=== PATIENT | female | born 1975 | race Hispanic/Latino ===

== ENCOUNTER 2017-08-07 21:07 | Observation (INO) | payer MEDICAID ==
[2017-08-07 21:17] VITALS: BMI 40.3
--- NOTE | 2017-08-07 21:36 | ED PDOC ---
Arrival/HPI - General Chief Complaint: Chest Pain Time Seen by Provider: 08/07/17 21:18 Historian: Patient - History of Present Illness Narrative History of Present Illness (Text): 08/07/17 21:35 Maria Luz Aragon is a 42 year old female, whose past medical history includes atrial fibrillation, hypertension, anxiety, and pancreatitis, who presents to the Emergency department complaining of mid-sternal chest pain radiating to her left arm since this morning, worsening tonight. Patient describes chest pain as a shooting pain and notes it is worsened with deep inspiration. Patient also reports generalized malaise. Patient states she took her medication tonight without relief. Patient denies any fever, chills, shortness of breath, nausea, vomiting, diarrhea, urinary symptoms, back pain, neck pain, headache, dizziness , or any other complaints. PMD: Dr. Brigida Mcmillan Time/Duration: Other (today) Symptom Onset: Gradual Symptom Course: Unchanged Activities at Onset: Light Context: Home Past Medical History - Provider Review Nursing Documentation Reviewed: Yes - Infectious Disease Hx of Infectious Diseases: None - Tetanus Immunization Tetanus Immunization: Up to Date - Cardiac Hx Cardiac Disorders: Yes Hx Atrial Fibrillation: Yes Hx Cardiac Arrhythmia: Yes (afib) Hx Hypertension: Yes Hx Peripheral Edema: Yes (+1 b/l) - Pulmonary Hx Respiratory Disorders: Yes Hx Pneumonia: Yes - Neurological Hx Neurological Disorder: No - HEENT Hx HEENT Disorder: No - Renal Hx Renal Disorder: Yes (cyst right kidney) - Endocrine/Metabolic Hx Endocrine Disorders: No - Hematological/Oncological Hx Blood Disorders: No - Integumentary Hx Dermatological Disorder: No - Musculoskeletal/Rheumatological Hx Musculoskeletal Disorders: No Hx Falls: No - Gastrointestinal Hx Gastrointestinal Disorders: Yes (IBS, hemorrhoids) Hx Gastroesophageal Reflux: Yes Hx Pancreatitis: Yes - Genitourinary/Gynecological Hx Genitourinary Disorders: Yes (KIDNEY CYST RIGHT,C SECTION X2) Other/Comment: ovarian cysts hx abn pap cone bx,HPV, 2 miscarriages - Psychiatric Hx Psychophysiologic Disorder: Yes Hx Anxiety: Yes Hx Depression: No Hx Emotional Abuse: No Hx Physical Abuse: No Hx Substance Use: No - Surgical History Hx Cardiac Catheterization: Yes Hx Section: Yes Hx Hysterectomy: Yes (partial) Hx Orthopedic Surgery: Yes (Left ft tendon ruptured) - Anesthesia Hx Anesthesia: Yes Hx Anesthesia Reactions: No Hx Malignant Hyperthermia: No - Suicidal Assessment Feels Threatened In Home Enviroment: No Family/Social History - Physician Review Nursing Documentation Reviewed: Yes Family/Social History: Unknown Family HX Smoking Status: Never Smoked Hx Alcohol Use: Yes Hx Substance Use: No Hx Substance Use Treatment: No Allergies/Home Meds Allergies/Adverse Reactions: Allergies milk Allergy (Verified 06/16/16 10:57) PAIN Penicillins Allergy (Verified 06/16/16 10:57) URTICARIA Home Medications: Home Meds Medication Instructions Recorded Confirmed Aspirin [Aspirin Chewable] 162 mg PO DAILY 06/16/16 08/07/17 Valsartan [Diovan] 0 mg PO DAILY 08/07/17 08/07/17 Review of Systems - Physician Review All systems were reviewed & negative as marked: Yes - Review of Systems Constitutional: Other (+generalized malaise). absent: Fevers Eyes: Normal ENT: Normal Respiratory: Normal. absent: SOB, Cough Cardiovascular: Chest Pain Gastrointestinal: Normal. absent: Abdominal Pain, Diarrhea, Nausea, Vomiting Genitourinary Female: Normal. absent: Dysuria, Frequency, Hematuria, Urine Output Changes Musculoskeletal: Normal. absent: Back Pain, Neck Pain Skin: Normal. absent: Rash Neurological: Normal. absent: Headache, Dizziness Endocrine: Normal Hemo/Lymphatic: Normal Psychiatric: Normal Physical Exam Vital Signs Reviewed: Yes Vital Signs Pulse Resp BP Pulse Ox 08/08/17 02:50 57 L 19 98 08/08/17 02:07 58 L 21 139/73 100 08/07/17 22:21 79 18 117/66 100 08/07/17 21:33 98 H 18 136/90 100 08/07/17 21:16 98 H 20 150/112 H 100 Temperature: Afebrile Blood Pressure: Hypertensive Pulse: Regular Respiratory Rate: Normal Appearance: Positive for: Well-Appearing, Non-Toxic, Comfortable Pain Distress: None Mental Status: Positive for: Alert and Oriented X 3 - Systems Exam Head: Present: Atraumatic, Normocephalic Pupils: Present: PERRL Extroacular Muscles: Present: EOMI Conjunctiva: Present: Normal Mouth: Present: Moist Mucous Membranes Neck: Present: Normal Range of Motion Respiratory/Chest: Present: Clear to Auscultation, Good Air Exchange. No: Respiratory Distress, Accessory Muscle Use Cardiovascular: Present: Regular Rate and Rhythm, Normal S1, S2. No: Murmurs Abdomen: Present: Normal Bowel Sounds. No: Tenderness, Distention, Peritoneal Signs Back: Present: Normal Inspection Upper Extremity: Present: Normal Inspection. No: Cyanosis, Edema Lower Extremity: Present: Normal Inspection. No: Edema Neurological: Present: GCS=15, CN II-XII Intact, Speech Normal Skin: Present: Warm, Dry, Normal Color. No: Rashes Psychiatric: Present: Alert, Oriented x 3, Normal Insight, Normal Concentration Medical Decision Making ED Course and Treatment: 08/07/17 21:35 Impression: 42 year old female complaining of chest pain radiating to left arm and generalized malaise since earlier today. Differential Diagnosis included but are not limited to: chest pain vs. a fib vs. ACS vs. PE Plan: -- EKG -- CTA Chest -- Labs, cardiac enzymes, D-dimer -- Urinalysis -- Reassess and disposition Prior Visits: Notes and results from previous visits were reviewed. On 06/16/2016, pt was seen in the Emergency department for left flank pain. Pt was discharged home. Progress Notes: Reviewed EKG, sinus tachycardia at [address]-segment elevations or depressions, no T-wave inversions. 08/08/17 00:56 Reviewed radiology, CTA Chest shows: Artifacts: Motion artifact degrades image quality. Heart, aorta and Pulmonary arteries: Heart size is normal. There is no pericardial effusion.There is no aneurysm or dissection. There is perfusion of the 3 arch vessels.There are no pulmonary emboli. Lungs and pleural spaces: Trachea and main bronchi are patent.There is no pneumothorax. There is no lobar or segmental consolidation. There is minimal dependent atelectasis. There are no effusions. Mediastinum: Esophagus is unremarkable. There are no pathologically enlarged mediastinal or hilar nodes. Thyroid: Thyroid is unremarkable Bones/joints: There are no acute osseous abnormalities. Soft tissues: unremarkable Upper abdomen: There are no acute abnormalities in the visualized portion of the abdomen. There is a right renal cyst. IMPRESSION: No aneurysm, dissection or pulmonary embolus, no focal pneumonia. 08/08/17 01:25 Case discussed with neuropsychology medical consultant, who is aware and agrees with plan. Case discussed with Dr. Daniels, who is aware and agrees with plan. Accepts pt in to hospitalist service. Pt will go to Telemetry observation for chest pain. Pt is no acute distress. Discussed results and hospital observation plan with pt , who is aware and verbalizes understanding. - Lab Interpretations Lab Results: 08/07/17 21:20 08/07/17 21:20 Lab Results 08/07/17 23:30: Urine Color Yellow, Urine Appearance Clear, Urine pH 6.0, Ur Specific [place] 1.020, Urine Protein Negative, Urine Glucose (UA) Negative, Urine Ketones Negative, Urine Blood Trace-intact H, Urine Nitrate Negative, Urine Bilirubin Negative, Urine Urobilinogen 0.2, Ur Leukocyte Esterase Negative , Urine RBC 0 - 2, Urine WBC 0 - 2, Ur Epithelial Cells 0 - 2 08/07/17 21:20: Sodium 141, Potassium 4.0, Chloride 105, Carbon Dioxide 26, Anion Gap 14, BUN 21, Creatinine 0.9, Est GFR ( Amer) > 60, Est GFR (Non- Af Amer) > 60, Random Glucose 91, Calcium 9.4, Magnesium 1.9, Total Bilirubin 0.7, AST 20, ALT 25, Alkaline Phosphatase 51, Lactate Dehydrogenase 528, Total Creatine Kinase 125, Troponin I < 0.01, Total Protein 7.1, Albumin 4.2, Globulin 2.9, Albumin/Globulin Ratio 1.4 08/07/17 21:20: D-Dimer, Quantitative 432 H 08/07/17 21:20: WBC 10.0 D, RBC 4.67, Hgb 14.1, Hct 40.9, MCV 87.6, MCH 30.2, MCHC 34.5, RDW 13.0, Plt Count 237, MPV 9.5, Gran % 64.7, Lymph % (Auto) 28.5, [place] % (Auto) 4.8, Eos % (Auto) 1.8, Baso % (Auto) 0.2, Gran # 6.46, Lymph # 2.9 , [place] # 0.5, Eos # 0.2, Baso # 0.02 I have reviewed the lab results: Yes - RAD Interpretation Radiology Orders: 08/07/17 22:52 ANGIO CHEST PE PROTOCOL [CT] Stat Preparation Department Supervisor: Radiologist - EKG Interpretation Interpreted by ED Physician: Yes Type: 12 lead EKG - Medication Orders Current Medication Orders: Discontinued Medications Acetaminophen (Tylenol 325mg Tab) 975 mg PO STAT STA Stop: 08/08/17 02:29 Last Admin: 08/08/17 02:47 Dose: 975 mg MAR Pain/Vitals Document 08/08/17 02:47 [email or web address] (Rec: 08/08/17 02:47 [email or web address] [id number]) Pain Reassessment Is This A Pain ReAssessment? No Sleep Is patient sleeping during reassessment? No Presence of Pain Presence of Pain Yes Pain Scale Used Pain Scale Used Numeric Location Pain Location Body Site Chest Description Constant Intensity 7 Scale Used Numeric Pain Behavior Facial Grimacing Aggravating Factors Changing Position Alleviating Factors Medication Re-Assess: [facility] Pain/Vitals Document 08/08/17 03:47 MS (Rec: 08/08/17 04:13 MS [id number]) Pain Reassessment Is This A Pain ReAssessment? Yes Sleep Is patient sleeping during reassessment? No Presence of Pain Presence of Pain No Aspirin (Aspirin Chewable) 162 mg PO DAILY [facility] Last Admin: 08/08/17 10:33 Dose: 162 mg Levothyroxine Sodium (Synthroid) 25 mcg PO 0600 [facility] Metoprolol Tartrate (Lopressor) 25 mg PO BID [facility] Last Admin: 08/08/17 10:31 Dose: 25 mg [facility] Pulse and Blood Pressure Document 08/08/17 10:31 MM (Rec: 08/08/17 10:32 MM [id number]) Pulse Pulse Rate (60-90) 68 Blood Pressure Blood Pressure (100/60-150/90) 111/52 Pantoprazole Sodium (Protonix Inj) 40 mg IVP DAILY [facility] Last Admin: 08/08/17 10:31 Dose: 40 mg IVP Administration Document 08/08/17 10:31 MM (Rec: 08/08/17 10:31 MM [id number]) Charges for Administration # of IVP Administrations 1 - Scribe Statement The provider has reviewed the documentation as recorded by the Marissa Grady Provider Scribe Attestation: All medical record entries made by the Scribe were at my direction and personally dictated by me. I have reviewed the chart and agree that the record accurately reflects my personal performance of the history, physical exam, medical decision making, and the department course for this patient. I have also personally directed, reviewed, and agree with the discharge instructions and disposition. Disposition/Present on Arrival - Present on Arrival Any Indicators Present on Arrival: No History of DVT/PE: No History of Uncontrolled Diabetes: No Urinary Catheter: No History of Decub. Ulcer: No History Surgical Site Infection Following: None - Disposition Have Diagnosis and Disposition been Completed?: Yes Diagnosis: Chest pain, Chest pain at rest Disposition: HOSPITALIZED Disposition Time: 01:20 Condition: GOOD
[2017-08-07 22:31] LABS: ALB/GLOB RATIO 1.4 (1.1-1.8); ALKALINE PHOSPHATASE 51 U/L (38-126); ALT/SGPT 25 U/L (7-56); AST/SGOT 20 U/L (14-36); BILIRUBIN,TOTAL 0.7 mg/dL (0.2-1.3); BLOOD UREA NITROGEN 21 mg/dL (7-21); CALCIUM 9.4 mg/dL (8.4-10.5); CARBON DIOXIDE 26 mmol/L (21-33); CHLORIDE 105 mmol/L (98-107); GFR AFRICAN-AMERICAN > 60; GLUCOSE,RANDOM 91 mg/dL (70-110); MAGNESIUM 1.9 mg/dL (1.7-2.2); SODIUM 141 mmol/L (132-148); TOTAL PROTEIN 7.1 g/dL (5.8-8.3)
[2017-08-07 22:41] LABS: BASO # 0.02 K/mm3 (0.0-2.0); BASO % 0.2 % (0.0-3.0); EOS # 0.2 (0.0-0.7); EOS % 1.8 % (1.5-5.0); GRAN # 6.46 (1.4-6.5); GRAN % 64.7 % (50.0-68.0); HEMATOCRIT 40.9 % (36.0-48.0); LYMPH # 2.9 (1.2-3.4); LYMPH % 28.5 % (22.0-35.0); MEAN CELL VOLUME 87.6 fl (80.0-105.0); MEAN CORPUSCULAR HEMOGLOBIN 30.2 pg (25.0-35.0); MEAN CORPUSCULAR HGB CONC 34.5 g/dl (31.0-37.0); MEAN PLATELET VOLUME 9.5 fl (7.0-11.0); MONO # 0.5 (0.1-0.6); MONO % 4.8 % (1.0-6.0); TROPONIN I < 0.01 ng/mL
[2017-08-07] MEDS ORDERED: Iohexol 350 MG/100 ML VIAL ONE (22:54)
[2017-08-07 23:58] LABS: URINE BILIRUBIN NEGATIVE (NEGATIVE); URINE BLOOD TRACE-INTACT (NEGATIVE); URINE GLUCOSE (UA) NEGATIVE (NEGATIVE); URINE KETONE NEGATIVE (NEGATIVE); URINE LEUKOCYTE ESTERASE NEGATIVE Leu/uL (NEGATIVE); URINE PROTEIN NEGATIVE mg/dL (<30 mg/dL); URINE UROBILINOGEN 0.2 E.U./dL (<1 E.U./dL)
[2017-08-07 23:59] LABS: URINE APPEARANCE CLEAR (CLEAR); URINE COLOR YELLOW (YELLOW)
[2017-08-08 00:11] LABS: URINE EPITHELIAL CELLS 0 - 2 /hpf (0-5); URINE RBC 0 - 2 /hpf (0-2); URINE WBC 0 - 2 /hpf (0-6)
--- NOTE | 2017-08-08 00:47 | CT ---
EXAM: CT Angiography Chest With Intravenous Contrast EXAM DATE/TIME: 08/07/2017 10:52 PM CLINICAL HISTORY: 42 years old, female; Pain; Chest pain; Additional info: Cp TECHNIQUE: Axial computed tomographic angiography images of the chest with intravenous contrast using pulmonary embolism protocol. All CT scans at this facility use one or more dose reduction techniques, viz.: automated exposure control; ma/kV adjustment per patient size (including targeted exams where dose is matched to indication; i.e. head); or iterative reconstruction technique. MIP reconstructed images were created and reviewed. Coronal and sagittal reformatted images were created and reviewed. CONTRAST: 96 mL of OMNI 350 administered intravenously. COMPARISON: CR - CHEST PORTABLE 2016-01-17 21:20 FINDINGS: Artifacts: Motion artifact degrades image quality. Heart, aorta and Pulmonary arteries: Heart size is normal. There is no pericardial effusion.There is no aneurysm or dissection. There is perfusion of the 3 arch vessels.There are no pulmonary emboli. Lungs and pleural spaces: Trachea and main bronchi are patent.There is no pneumothorax. There is no lobar or segmental consolidation. There is minimal dependent atelectasis. There are no effusions. Mediastinum: Esophagus is unremarkable. There are no pathologically enlarged mediastinal or hilar nodes. Thyroid: Thyroid is unremarkable Bones/joints: There are no acute osseous abnormalities. Soft tissues: unremarkable Upper abdomen: There are no acute abnormalities in the visualized portion of the abdomen. There is a right renal cyst. IMPRESSION: No aneurysm, dissection or pulmonary embolus, no focal pneumonia
--- NOTE | 2017-08-08 02:55 | CP.PCM.HP ---
<Emigdio Spencer - Last Filed: 08/08/17 02:49> History of Present Illness - History of Present Illness History of Present Illness: This is a 42 year old female with a past medical history of hypertension, and obesity who comes in with chest pain for two years. The patient came in today because it began radiating to her left arm. The patient says it begins in the sternum area and radiates the left arm. The patient reports taking a hot shower to help improve the symptoms with no success. The patient also is reporting shortness of breath in conjunction with the initial symptoms. The patient denies any abdominal pain, lightheadedness ,dizziness, changes in vision , nausea, vomiting, numbness or tingling in hands or feet, syncopal episodes or any other complaints. PMD: Dr. Mcmillan Past medical history:hypertension, obesity Medications: Valsartan, Metoprolol Allergies: Penicillins, milk Past surgical history: Foot repair, 2 Caesarean sections, Partial hysterectomy, Cardiac cath (2014) Past social history: Denies alcohol or smoking. [place] illicit drug use. Present on Admission - Present on Admission Any Indicators Present on Admission: No Review of Systems - Constitutional Constitutional: absent: Chills, Daytime Sleepiness, Headache, Night Sweats, Weakness - EENT Eyes: absent: Blurred Vision, Change in Vision, Discharge, Dry Eye, Irritation, Loss of Peripheral Vision Ears: absent: Ear Discharge, Disequilibrium, Dizziness Nose/Mouth/Throat: absent: Nasal Congestion, Nasal Trauma, Nose Pain, Bleeding Gums, Dysphagia, Mouth Pain, Facial Pain - Cardiovascular Cardiovascular: Chest Pain, Chest Pain at Rest. absent: Diaphoresis, Dyspnea, Dyspnea on Exertion, Irregular Heart Rhythm, Leg Edema, Palpitations, Syncope - Respiratory Respiratory: absent: Snoring, Stridor, Pain on Inspiration, Chest Congestion - Gastrointestinal Gastrointestinal: absent: Abdominal Pain, Belching, Diarrhea, Dysphagia, Melena , Nausea, Temesmus, Vomiting, Other - Genitourinary Genitourinary: absent: Change in Urinary Stream, Pyuria, Nocturia, Urinary Urgency, Bladder Distension - Musculoskeletal Musculoskeletal: absent: Arthralgias, Atrophy, Back Pain, Myalgias, Neck Pain, Stiffness, Tingling - Integumentary Integumentary: absent: Alopecia, Lesions, New Lesions, Photosensitivity, Swelling - Neurological Neurological: absent: Abnormal Hearing, Burning Sensations, Disequilibrium, Numbness, Headaches, Lack of Coordination, Tingling, Vertigo, Weakness - Psychiatric Psychiatric: absent: Anxiety, Confusion, Depression, Hopelessness, Irritability , Panic Attacks - Endocrine Endocrine: absent: Palpitations, Polydipsia, Polyphagia, Polyuria - Hematologic/Lymphatic Hematologic: absent: Easy Bleeding, Easy Bruising Past Patient History - Infectious Disease Hx of Infectious Diseases: None - Tetanus Immunizations Tetanus Immunization: Up to Date - Past Medical History & Family History Past Medical History?: Yes - Past Social History Smoking Status: Never Smoked - CARDIAC Hx Cardiac Disorders: Yes Hx Atrial Fibrillation: Yes Hx Cardia Arrhythmia: Yes (afib) Hx Hypertension: Yes Hx Peripheral Edema: Yes (+1 b/l) - PULMONARY Hx Respiratory Disorders: Yes Hx Pneumonia: Yes - NEUROLOGICAL Hx Neurological Disorder: No - HEENT Hx HEENT Problems: No - RENAL Hx Chronic Kidney Disease: Yes (cyst right kidney) - ENDOCRINE/METABOLIC Hx Endocrine Disorders: No - HEMATOLOGICAL/ONCOLOGICAL Hx Blood Disorders: No - INTEGUMENTARY Hx Dermatological Problems: No - MUSCULOSKELETAL/RHEUMATOLOGICAL Hx Musculoskeletal Disorders: No Hx Falls: No - GASTROINTESTINAL Hx Gastrointestinal Disorders: Yes (IBS, hemorrhoids) Hx Gastroesophageal Reflux: Yes Hx Pancreatitis: Yes - GENITOURINARY/GYNECOLOGICAL Hx Genitourinary Disorders: Yes (KIDNEY CYST RIGHT,C SECTION X2) Other/Comment: ovarian cysts hx abn pap cone bx,HPV, 2 miscarriages - PSYCHIATRIC Hx Psychophysiologic Disorder: Yes Hx Anxiety: Yes Hx Depression: No Hx Emotional Abuse: No Hx Physical Abuse: No Hx Substance Use: No - SURGICAL HISTORY Hx Cardiac Catheterization: Yes Hx Section: Yes Hx Hysterectomy: Yes (partial) Hx Orthopedic Surgery: Yes (Left ft tendon ruptured) - ANESTHESIA Hx Anesthesia: Yes Hx Anesthesia Reactions: No Hx Malignant Hyperthermia: No Meds Allergies/Adverse Reactions: Allergies Allergy/AdvReac Type Severity Reaction Status Date / Time milk Allergy PAIN Verified 06/16/16 10:57 Penicillins Allergy URTICARIA Verified 06/16/16 10:57 Physical Exam - Head Exam Head Exam: ATRAUMATIC, NORMAL INSPECTION, NORMOCEPHALIC - Eye Exam Eye Exam: EOMI, Normal appearance, PERRL Pupil Exam: NORMAL ACCOMODATION, PERRL. absent: Irregular, Unequal - ENT Exam ENT Exam: Mucous Membranes Moist, Normal Exam, Normal Oropharynx. absent: TM's Normal Bilaterally - Neck Exam Neck exam: Positive for: Normal Inspection. Negative for: Lymphadenopathy, Thyromegaly - Respiratory Exam Respiratory Exam: Clear to Auscultation Bilateral, NORMAL BREATHING PATTERN. absent: Chest Wall Tenderness, Prolonged Expiratory Phase, Respiratory Distress - Cardiovascular Exam Cardiovascular Exam: REGULAR RHYTHM, RRR, +S1, +S2. absent: Rubs - GI/Abdominal Exam GI & Abdominal Exam: Normal Bowel Sounds, Soft. absent: Hypoactive Bowel Sounds , Mass, Organomegaly, Tenderness - Extremities Exam Extremities exam: Positive for: full ROM, normal inspection. Negative for: joint swelling, pedal edema, tenderness - Back Exam Back exam: NORMAL INSPECTION. absent: CVA tenderness (L), CVA tenderness (R), paraspinal tenderness - Neurological Exam Neurological exam: Alert, CN II-XII Intact, Normal Gait, Oriented x3 - Psychiatric Exam Psychiatric exam: Normal Affect, Normal Mood - Skin Skin Exam: Dry, Intact Results - Vital Signs Recent Vital Signs: Last Vital Signs Temp Pulse 58 L 08/08/17 02:07 Resp 21 08/08/17 02:07 BP 139/73 08/08/17 02:07 Pulse Ox 100 08/08/17 02:07 - Labs Result Diagrams: 08/07/17 21:20 08/07/17 21:20 Assessment & Plan - Assessment and Plan (Free Text) Assessment: This is a 42 year old female with a past medical history of hypertension and obesity who is being admitted for chest pain. Plan: 1. Chest pain r/o acs, gerd, pleuritic pain -EKG in the e.d. was negative for acute ST-T changes -Troponins (-)x1. Trend troponins -Repeat EKG in the A.M. -Cardiology consulted. Will f/u with rec's. -TSH, Hemoglobin A1C, Lipid panel ordered. Will f/u with results. 2. Hypertension -Continue home meds. 3. Obesity -Counseled patient on eating and activity habits. GI ppx -Protonix DVT ppx -SCD's <Timoteo Daniels - Last Filed: 08/08/17 22:47> Results - Vital Signs Recent Vital Signs: Last Vital Signs Temp 98.1 F 08/08/17 12:00 Pulse 69 08/08/17 12:00 Resp 16 08/08/17 12:00 BP 138/81 08/08/17 12:00 Pulse Ox 97 08/08/17 06:00 - Labs Result Diagrams: 08/08/17 06:00 08/08/17 06:00 Labs: Laboratory Results - last 24 hr 08/08/17 08/08/17 08/08/17 02:50 06:00 06:00 WBC 6.8 D RBC 4.20 Hgb 12.4 Hct 36.7 MCV 87.4 MCH 29.5 MCHC 33.8 RDW 13.2 Plt Count 215 MPV 9.0 Gran % 49.8 L Lymph % (Auto) 40.1 H [place] % (Auto) 6.8 H Eos % (Auto) 2.9 Baso % (Auto) 0.4 Gran # 3.37 Lymph # 2.7 [place] # 0.5 Eos # 0.2 Baso # 0.03 Sodium 142 Potassium 4.1 Chloride 106 Carbon Dioxide 29 Anion Gap 11 BUN 19 Creatinine 0.8 Est GFR ( Amer) > 60 Est GFR (Non-Af Amer) > 60 Random Glucose 98 Hemoglobin A1c Calcium 8.7 Total Bilirubin 0.9 AST 20 ALT 32 Alkaline Phosphatase 46 Troponin I < 0.01 < 0.01 Total Protein 6.2 Albumin 3.5 Globulin 2.7 Albumin/Globulin Ratio 1.3 Triglycerides 83 Cholesterol 132 LDL Cholesterol Direct 82 HDL Cholesterol 41 Free T4 TSH 3rd Generation 08/08/17 08/08/17 08/08/17 06:00 06:00 09:15 WBC RBC Hgb Hct MCV MCH MCHC RDW Plt Count MPV Gran % Lymph % (Auto) [place] % (Auto) Eos % (Auto) Baso % (Auto) Gran # Lymph # [place] # Eos # Baso # Sodium Potassium Chloride Carbon Dioxide Anion Gap BUN Creatinine Est GFR ( Amer) Est GFR (Non-Af Amer) Random Glucose Hemoglobin A1c 5.3 Calcium Total Bilirubin AST ALT Alkaline Phosphatase Troponin I Total Protein Albumin Globulin Albumin/Globulin Ratio Triglycerides Cholesterol LDL Cholesterol Direct HDL Cholesterol Free T4 0.92 TSH 3rd Generation 5.25 H Attending/Attestation - Attestation I have personally seen and examined this patient.: Yes I have fully participated in the care of the patient.: Yes I have reviewed all pertinent clinical information: Yes Notes (Text): 08/08/17 22:45 Patient was seen when she was in the ER. Medical record was reviewed. Agree with history, physical examination, assessment and plan. My impressions are as follows: Chest pain. Atrial fibrillation. HTN. Obesity. TIA. UTI. Anxiety. GERD. Ovarian cyst. Allergy to penicillin. Allergy to milk. Hx of alcohol use. Elevated D-Dimer. Right renal cyst on CT. Pancretitis. Hemorrhoids. Tonsillitis. Cervitis. Hx C-Seciton. Hx left foot surgery. Partial hysrectomy. Right oophorectomy. Hx D & C. Hx of endoscopy. Family history [place]. Family history breast cancer. Family history stomach cancer. ] Family history ovarian cancer.
[2017-08-08 06:21] VITALS: O2SAT 97
[2017-08-08 06:36] LABS: BASO # 0.03 K/mm3 (0.0-2.0); BASO % 0.4 % (0.0-3.0); EOS # 0.2 (0.0-0.7); EOS % 2.9 % (1.5-5.0); GRAN # 3.37 (1.4-6.5); GRAN % 49.8 % (50.0-68.0); HEMATOCRIT 36.7 % (36.0-48.0); LYMPH # 2.7 (1.2-3.4); LYMPH % 40.1 % (22.0-35.0); MEAN CELL VOLUME 87.4 fl (80.0-105.0); MEAN CORPUSCULAR HEMOGLOBIN 29.5 pg (25.0-35.0); MEAN CORPUSCULAR HGB CONC 33.8 g/dl (31.0-37.0); MONO # 0.5 (0.1-0.6); MONO % 6.8 % (1.0-6.0); RED CELL DISTRIBUTION WIDTH 13.2 % (11.5-14.5); WHITE BLOOD COUNT 6.8 10^3/ul (4.5-11.0)
[2017-08-08 06:49] LABS: ALB/GLOB RATIO 1.3 (1.1-1.8); ALKALINE PHOSPHATASE 46 U/L (38-126); ALT/SGPT 32 U/L (7-56); AST/SGOT 20 U/L (14-36); BILIRUBIN,TOTAL 0.9 mg/dL (0.2-1.3); BLOOD UREA NITROGEN 19 mg/dL (7-21); CALCIUM 8.7 mg/dL (8.4-10.5); CARBON DIOXIDE 29 mmol/L (21-33); CHLORIDE 106 mmol/L (98-107); CHOLESTEROL 132 mg/dL (130-200); GFR AFRICAN-AMERICAN > 60; GLUCOSE,RANDOM 98 mg/dL (70-110); POTASSIUM 4.1 mmol/L (3.6-5.0); SODIUM 142 mmol/L (132-148); TOTAL PROTEIN 6.2 g/dL (5.8-8.3)
[2017-08-08 07:19] LABS: TROPONIN I < 0.01 ng/mL
[2017-08-08] MEDS ORDERED: Aminophylline 25 mg/ml Inj ONE (09:47)
--- NOTE | 2017-08-08 11:12 | CP.PCM.DIS ---
<Khurram Rangel - Last Filed: 08/08/17 14:55> Provider - Provider Date of Admission: 08/08/17 01:47 Attending physician: Lidya Peace MD Primary care physician: Tanner Mcmillan MD Consults: Cardiology Time Spent in preparation of Discharge (in minutes): 70 Hospital Course - Lab Results Lab Results: Most Recent Lab Values WBC 6.8 10^3/ul (4.5-11.0) D 08/08/17 06:00 RBC 4.20 10^6/uL (3.5-6.1) 08/08/17 06:00 Hgb 12.4 g/dL (12.0-16.0) 08/08/17 06:00 Hct 36.7 % (36.0-48.0) 08/08/17 06:00 MCV 87.4 fl (80.0-105.0) 08/08/17 06:00 MCH 29.5 pg (25.0-35.0) 08/08/17 06:00 MCHC 33.8 g/dl (31.0-37.0) 08/08/17 06:00 RDW 13.2 % (11.5-14.5) 08/08/17 06:00 Plt Count 215 10^3/uL (120.0-450.0) 08/08/17 06:00 MPV 9.0 fl (7.0-11.0) 08/08/17 06:00 Gran % 49.8 % (50.0-68.0) L 08/08/17 06:00 Lymph % (Auto) 40.1 % (22.0-35.0) H 08/08/17 06:00 [place] % (Auto) 6.8 % (1.0-6.0) H 08/08/17 06:00 Eos % (Auto) 2.9 % (1.5-5.0) 08/08/17 06:00 Baso % (Auto) 0.4 % (0.0-3.0) 08/08/17 06:00 Gran # 3.37 (1.4-6.5) 08/08/17 06:00 Lymph # 2.7 (1.2-3.4) 08/08/17 06:00 [place] # 0.5 (0.1-0.6) 08/08/17 06:00 Eos # 0.2 (0.0-0.7) 08/08/17 06:00 Baso # 0.03 K/mm3 (0.0-2.0) 08/08/17 06:00 D-Dimer, Quantitative 432 ng/mL (0-243) H 08/07/17 21:20 Sodium 142 mmol/L (132-148) 08/08/17 06:00 Potassium 4.1 mmol/L (3.6-5.0) 08/08/17 06:00 Chloride 106 mmol/L (98-107) 08/08/17 06:00 Carbon Dioxide 29 mmol/L (21-33) 08/08/17 06:00 Anion Gap 11 (10-20) 08/08/17 06:00 BUN 19 mg/dL (7-21) 08/08/17 06:00 Creatinine 0.8 mg/dL (0.7-1.2) 08/08/17 06:00 Est GFR ( Amer) > 60 08/08/17 06:00 Est GFR (Non-Af Amer) > 60 08/08/17 06:00 Random Glucose 98 mg/dL (70-110) 08/08/17 06:00 Calcium 8.7 mg/dL (8.4-10.5) 08/08/17 06:00 Magnesium 1.9 mg/dL (1.7-2.2) 08/07/17 21:20 Total Bilirubin 0.9 mg/dL (0.2-1.3) 08/08/17 06:00 AST 20 U/L (14-36) 08/08/17 06:00 ALT 32 U/L (7-56) 08/08/17 06:00 Alkaline Phosphatase 46 U/L (38-126) 08/08/17 06:00 Lactate Dehydrogenase 528 U/L (333-699) 08/07/17 21:20 Total Creatine Kinase 125 U/L (35-230) 08/07/17 21:20 Troponin I < 0.01 ng/mL 08/08/17 06:00 Total Protein 6.2 g/dL (5.8-8.3) 08/08/17 06:00 Albumin 3.5 g/dL (3.0-4.8) 08/08/17 06:00 Globulin 2.7 gm/dL 08/08/17 06:00 Albumin/Globulin Ratio 1.3 (1.1-1.8) 08/08/17 06:00 Triglycerides 83 mg/dL (35-160) 08/08/17 06:00 Cholesterol 132 mg/dL (130-200) 08/08/17 06:00 LDL Cholesterol Direct 82 mg/dL (0-129) 08/08/17 06:00 HDL Cholesterol 41 mg/dL (29-60) 08/08/17 06:00 Free T4 0.92 ng/dL (0.78-2.19) 08/08/17 09:15 TSH 3rd Generation 5.25 mIU/mL (0.46-4.68) H 08/08/17 06:00 Urine Color Yellow (YELLOW) 08/07/17 23:30 Urine Appearance Clear (CLEAR) 08/07/17 23:30 Urine pH 6.0 (4.7-8.0) 08/07/17 23:30 Ur Specific [place] 1.020 (1.005-1.035) 08/07/17 23:30 Urine Protein Negative mg/dL (<30 mg/dL) 08/07/17 23:30 Urine Glucose (UA) Negative mg/dL (NEGATIVE) 08/07/17 23:30 Urine Ketones Negative mg/dL (NEGATIVE) 08/07/17 23:30 Urine Blood Trace-intact (NEGATIVE) H 08/07/17 23:30 Urine Nitrate Negative (NEGATIVE) 08/07/17 23:30 Urine Bilirubin Negative (NEGATIVE) 08/07/17 23:30 Urine Urobilinogen 0.2 E.U./dL (<1 E.U./dL) 08/07/17 23:30 Ur Leukocyte Esterase Negative Arturo/uL (NEGATIVE) 08/07/17 23:30 Urine RBC 0 - 2 /hpf (0-2) 08/07/17 23:30 Urine WBC 0 - 2 /hpf (0-6) 08/07/17 23:30 Ur Epithelial Cells 0 - 2 /hpf (0-5) 08/07/17 23:30 - Hospital Course Hospital Course: This is a 42 year old female with a past medical history of hypertension and obesity who was admitted and evaluated for chest pain. EKG was done and was negative for acute ST-T changes. troponins were ordered and three sets were negative. Cardiology was consulted and patient refused a stress test. Patient will follow up as an outpatient. Patient was continued on home medicine and counselled on obesity. Discharge Exam - Head Exam Head Exam: ATRAUMATIC, NORMAL INSPECTION, NORMOCEPHALIC - Eye Exam Eye Exam: EOMI, Normal appearance, PERRL Pupil Exam: NORMAL ACCOMODATION - ENT Exam ENT Exam: Normal Exam - Respiratory Exam Respiratory Exam: Clear to PA & Lateral, NORMAL BREATHING PATTERN - Cardiovascular Exam Cardiovascular Exam: REGULAR RHYTHM, +S1, +S2 - GI/Abdominal Exam GI & Abdominal Exam: Normal Bowel Sounds, Unremarkable - Neurological Exam Neurological exam: Alert, Oriented x3 - Psychiatric Exam Psychiatric exam: Normal Affect - Skin Skin Exam: Normal Color, Warm Discharge Plan - Follow Up Plan Condition: GOOD Disposition: HOME/ ROUTINE Instructions: Chest Pain (DC), Chest Pain (GEN) Additional Instructions: Please schedule appointment with Dr. Griffin as an outpatient for cardiology. Referrals: Tanner Mcmillan [Primary Care Provider] - Yolie Griffin MD [Staff Provider] - <Lidya Peace - Last Filed: 08/08/17 17:55> Provider - Provider Date of Admission: 08/08/17 01:47 Attending physician: Lidya Peace MD Primary care physician: Tanner Mcmillan MD Hospital Course - Lab Results Lab Results: Most Recent Lab Values WBC 6.8 10^3/ul (4.5-11.0) D 08/08/17 06:00 RBC 4.20 10^6/uL (3.5-6.1) 08/08/17 06:00 Hgb 12.4 g/dL (12.0-16.0) 08/08/17 06:00 Hct 36.7 % (36.0-48.0) 08/08/17 06:00 MCV 87.4 fl (80.0-105.0) 08/08/17 06:00 MCH 29.5 pg (25.0-35.0) 08/08/17 06:00 MCHC 33.8 g/dl (31.0-37.0) 08/08/17 06:00 RDW 13.2 % (11.5-14.5) 08/08/17 06:00 Plt Count 215 10^3/uL (120.0-450.0) 08/08/17 06:00 MPV 9.0 fl (7.0-11.0) 08/08/17 06:00 Gran % 49.8 % (50.0-68.0) L 08/08/17 06:00 Lymph % (Auto) 40.1 % (22.0-35.0) H 08/08/17 06:00 [place] % (Auto) 6.8 % (1.0-6.0) H 08/08/17 06:00 Eos % (Auto) 2.9 % (1.5-5.0) 08/08/17 06:00 Baso % (Auto) 0.4 % (0.0-3.0) 08/08/17 06:00 Gran # 3.37 (1.4-6.5) 08/08/17 06:00 Lymph # 2.7 (1.2-3.4) 08/08/17 06:00 [place] # 0.5 (0.1-0.6) 08/08/17 06:00 Eos # 0.2 (0.0-0.7) 08/08/17 06:00 Baso # 0.03 K/mm3 (0.0-2.0) 08/08/17 06:00 D-Dimer, Quantitative 432 ng/mL (0-243) H 08/07/17 21:20 Sodium 142 mmol/L (132-148) 08/08/17 06:00 Potassium 4.1 mmol/L (3.6-5.0) 08/08/17 06:00 Chloride 106 mmol/L (98-107) 08/08/17 06:00 Carbon Dioxide 29 mmol/L (21-33) 08/08/17 06:00 Anion Gap 11 (10-20) 08/08/17 06:00 BUN 19 mg/dL (7-21) 08/08/17 06:00 Creatinine 0.8 mg/dL (0.7-1.2) 08/08/17 06:00 Est GFR ( Amer) > 60 08/08/17 06:00 Est GFR (Non-Af Amer) > 60 08/08/17 06:00 Random Glucose 98 mg/dL (70-110) 08/08/17 06:00 Hemoglobin A1c 5.3 % (4.2-6.5) 08/08/17 06:00 Calcium 8.7 mg/dL (8.4-10.5) 08/08/17 06:00 Magnesium 1.9 mg/dL (1.7-2.2) 08/07/17 21:20 Total Bilirubin 0.9 mg/dL (0.2-1.3) 08/08/17 06:00 AST 20 U/L (14-36) 08/08/17 06:00 ALT 32 U/L (7-56) 08/08/17 06:00 Alkaline Phosphatase 46 U/L (38-126) 08/08/17 06:00 Lactate Dehydrogenase 528 U/L (333-699) 08/07/17 21:20 Total Creatine Kinase 125 U/L (35-230) 08/07/17 21:20 Troponin I < 0.01 ng/mL 08/08/17 06:00 Total Protein 6.2 g/dL (5.8-8.3) 08/08/17 06:00 Albumin 3.5 g/dL (3.0-4.8) 08/08/17 06:00 Globulin 2.7 gm/dL 08/08/17 06:00 Albumin/Globulin Ratio 1.3 (1.1-1.8) 08/08/17 06:00 Triglycerides 83 mg/dL (35-160) 08/08/17 06:00 Cholesterol 132 mg/dL (130-200) 08/08/17 06:00 LDL Cholesterol Direct 82 mg/dL (0-129) 08/08/17 06:00 HDL Cholesterol 41 mg/dL (29-60) 08/08/17 06:00 Free T4 0.92 ng/dL (0.78-2.19) 08/08/17 09:15 TSH 3rd Generation 5.25 mIU/mL (0.46-4.68) H 08/08/17 06:00 Urine Color Yellow (YELLOW) 08/07/17 23:30 Urine Appearance Clear (CLEAR) 08/07/17 23:30 Urine pH 6.0 (4.7-8.0) 08/07/17 23:30 Ur Specific [place] 1.020 (1.005-1.035) 08/07/17 23:30 Urine Protein Negative mg/dL (<30 mg/dL) 08/07/17 23:30 Urine Glucose (UA) Negative mg/dL (NEGATIVE) 08/07/17 23:30 Urine Ketones Negative mg/dL (NEGATIVE) 08/07/17 23:30 Urine Blood Trace-intact (NEGATIVE) H 08/07/17 23:30 Urine Nitrate Negative (NEGATIVE) 08/07/17: Urine Bilirubin Negative (NEGATIVE) 08/07/17 23:30 Urine Urobilinogen 0.2 E.U./dL (<1 E.U./dL) 08/07/17 23:30 Ur Leukocyte Esterase Negative Arturo/uL (NEGATIVE) 08/07/17 23: Urine RBC 0 - 2 /hpf (0-2) 08/07/17 23:30 Urine WBC 0 - 2 /hpf (0-6) 08/07/17 23:30 Ur Epithelial Cells 0 - 2 /hpf (0-5) 08/07/17 23:30 Attending/Attestation - Attestation I have personally seen and examined this patient.: Yes I have fully participated in the care of the patient.: Yes I have reviewed all pertinent clinical information, including history, physical exam and plan: Yes Notes (Text): 08/08/17 17:54 Attending note; Patient seen and examined with resident. Patient is a 42-year-old female admitted with chest pain. Cardiac enzymes 3 negative. EKG no acute ST-T changes. Stress test was planned. Patient refused stress test today. patient had cardiac About 3 years ago which was normal. Patient will be discharged home. We will get stress test as outpatient with Dr. Griffin. Patient will follow up with PMD . Diagnosis; Chest pain Obesity Hypertension
[2017-08-08 12:09] VITALS: BP 138/81; PULSE 69; RESP 16; TEMP 98.1
--- NOTE | 2017-08-08 16:43 | CARD ---
APPROVED REPORT EKG Measurement Heart [id number] <Conclusion> Sinus bradycardia Otherwise normal ECG
--- NOTE | 2017-08-08 16:47 | CARD ---
APPROVED REPORT EKG Measurement Heart [id number] [place] [id number] <Conclusion> Sinus tachycardia Otherwise normal ECG
--- NOTE | 2017-08-08 20:33 | CON ---
DATE: 08/08/2017 ADDENDUM The initial consult was dictated this morning. REASON FOR ADDENDUM: The patient is scheduled for stress test and echo. The patient had been called multiple times as per nurse, but the patient refused to come and wanted to sleep, so we will reschedule a stress test as an outpatient, so far troponin remains negative, okay to be discharged and schedule workup as an outpatient. So far, troponin x3 is negative. We will discontinue telemetry and schedule stress test as an outpatient. Yolie Griffin MD
--- NOTE | 2017-08-08 22:57 | CON ---
CARDIOLOGY CONSULTATION DATE: 08/08/2017 REASON FOR CONSULTATION: Followup chest pain, palpitation, obesity. BRIEF CLINICAL HISTORY: This is a 42-year-old female with a past medical history significant for hypertension, obesity, palpitation, status post cardiac catheterization in 2012 or 2013, nonobstructive coronary artery disease essentially normal, came in with complaining of a squeezing pain in the chest, feels something is not right in the heart, so she came to the emergency room. Denies any dyspnea on exertion or chest pian on exertion. Pain was having off and on for a couple of days, but last two days more, so the patient came to the emergency room. PAST MEDICAL HISTORY: Significant for hypertension, TIA, obesity, being followed by Dr. Mcmillan in [place]. CURRENT MEDICATIONS: The patient is on valsartan, metoprolol and aspirin. PAST SURGICAL HISTORY: Significant for two sections, history of hysterectomy, history of foot repair, history of cardiac catheterization in 2013. SOCIAL HISTORY: She denies history of alcohol abuse, denies any history of substance abuse. Previous electronic record revealed that the patient had a cardiac catheterization on 07/15/[address] Walker, there is unremarkable coronaries with a normal left ventricular function, ejection fraction 55%. The patient's echocardiography on 07/03/2015 that showed a normal LV function, normal wall motion, no tricuspid regurgitation, no pulmonary hypertension, trace mitral regurgitation dated 07/03/2015. REVIEW OF SYSTEMS: As per HPI. PHYSICAL EXAMINATION: As follows; VITAL SIGNS: Temperature afebrile, heart rate 68, blood pressure 111/55. HEENT: PERRLA. Extraocular muscles are intact. NECK: Supple. No carotid bruits or thyromegaly. CHEST: Clear to auscultation. HEART: S1 and S2 regular. ABDOMEN: Soft. EXTREMITIES: Clubbing and cyanosis negative. LABORATORY DATA: Blood workup as follows; WBC of 6.8, hemoglobin of 12.8, hematocrit of 36.7, platelet count of 215. Chemistry shows sodium 140, potassium of 4, chloride 106, carbon dioxide 20, anion gap of 11, BUN 19, creatinine of 0.8. Troponin remains negative. TSH 5.25. IMPRESSION: Obesity, body mass index 40 kg/m2; hypertension; hyperlipidemia; history of cardiac catheterization on 07/15/2015, essentially normal coronaries, preserved left ventricular function by echocardiogram; recurrent chest pain; questionable history of transient ischemic attack and cerebrovascular accident; questionable history of palpitation; paroxysmal atrial fibrillation. RECOMMENDATIONS: Continue metoprolol. Stress test and echo to assess LV function. Resume back low dose of Levoxyl for elevated TSH. Follow lipid profile. We will follow with you. Thank you Dr. Peace for providing us the opportunity in taking care of Ms. Braga. We will follow with you. Yolie Griffni MD
[2017-08-09] MEDS ORDERED: Levothyroxine 25 MCG TAB PO SCH (06:00)
== END 2017-08-08 13:57 | disposition home or self-care (01) ==
LOC: ED 21:07 → ERH 08-08 01:47 → 2RNO 08-08 03:05
PROVIDERS: ADMIT Hospitalist; ATTEND Internal Medicine
DX: R07.9 Chest pain, unspecified (principal); E66.9 Obesity, unspecified; I10 Essential (primary) hypertension; E78.5 Hyperlipidemia, unspecified; I48.0 Paroxysmal atrial fibrillation; I25.10 Atherosclerotic heart disease of native coronary artery without angina pectoris; K21.9 Gastro-esophageal reflux disease without esophagitis; K58.9 Irritable bowel syndrome, unspecified; Z86.73 Personal history of transient ischemic attack (TIA), and cerebral infarction without residual deficits; Z87.01 Personal history of pneumonia (recurrent); N83.209 Unspecified ovarian cyst, unspecified side; Z90.710 Acquired absence of both cervix and uterus; N28.1 Cyst of kidney, acquired; F41.9 Anxiety disorder, unspecified; K64.9 Unspecified hemorrhoids; Z87.19 Personal history of other diseases of the digestive system; Z88.0 Allergy status to penicillin; Z91.011 Allergy to milk products; R40.2412 Glasgow coma scale score 13-15, at arrival to emergency department; R00.0 Tachycardia, unspecified; N39.0 Urinary tract infection, site not specified; J03.90 Acute tonsillitis, unspecified; Z82.49 Family history of ischemic heart disease and other diseases of the circulatory system; Z80.0 Family history of malignant neoplasm of digestive organs; Z80.41 Family history of malignant neoplasm of ovary; Z68.39 Body mass index [BMI] 39.0-39.9, adult
CPT/HCPCS: 71275; 80053; 80061; 81001; 82550; 83036; 83615; 83735; 84439; 84443; 84484; 85025; 85378; 93005; 99285; C9113; G0378; Q9967

== ENCOUNTER 2017-08-30 02:14 | Emergency (ER) | payer MEDICAID ==
[2017-08-30 02:15] VITALS: BMI 40.3
[2017-08-30 02:30] VITALS: TEMP 97.6
[2017-08-30 02:33] VITALS: BP 138/87; PULSE 75; RESP 18; O2SAT 97
[2017-08-30] MEDS ORDERED: Sodium Chloride 0.9% 1,000 ML IV STA (02:46)
[2017-08-30] MEDS ORDERED: Morphine 2 mg/ml ISec IVP STA (02:47)
--- NOTE | 2017-08-30 02:51 | ED PDOC ---
Arrival/HPI - General Chief Complaint: Female Genitourinary Time Seen by Provider: 08/30/17 02:36 Historian: Patient - History of Present Illness Narrative History of Present Illness (Text): 08/30/17 02:50 A 42 year old female, whose past medical history includes pancreatitis, anxiety , hypertension and Atrial fibrillation, presents to the emergency department complaining of left sided flank pain and dysuria. Patient denies any headache, dizziness, fever, chills, nausea or any other complaints at this time. PMD: Dr. Tanner Mcmillan Symptom Onset: Sudden Symptom Course: Unchanged Activities at Onset: Rest Context: Home Past Medical History - Provider Review Nursing Documentation Reviewed: Yes - Infectious Disease Hx of Infectious Diseases: None - Tetanus Immunization Tetanus Immunization: Up to Date - Cardiac Hx Cardiac Disorders: Yes Hx Atrial Fibrillation: Yes Hx Cardiac Arrhythmia: Yes (afib) Hx Hypertension: Yes Hx Peripheral Edema: Yes (+1 b/l) - Pulmonary Hx Respiratory Disorders: Yes Hx Pneumonia: Yes - Neurological Hx Neurological Disorder: No - HEENT Hx HEENT Disorder: No - Renal Hx Renal Disorder: Yes (cyst right kidney) Other/Comment: uti - Endocrine/Metabolic Hx Endocrine Disorders: No - Hematological/Oncological Hx Blood Disorders: No - Integumentary Hx Dermatological Disorder: No - Musculoskeletal/Rheumatological Hx Musculoskeletal Disorders: No Hx Falls: No - Gastrointestinal Hx Gastrointestinal Disorders: Yes (IBS, hemorrhoids) Hx Gastroesophageal Reflux: Yes Hx Pancreatitis: Yes - Genitourinary/Gynecological Hx Genitourinary Disorders: Yes (KIDNEY CYST RIGHT,C SECTION X2) Other/Comment: ovarian cysts hx abn pap cone bx,HPV, 2 miscarriages - Psychiatric Hx Psychophysiologic Disorder: No Hx Depression: No Hx Emotional Abuse: No Hx Physical Abuse: No Hx Substance Use: No - Surgical History Hx Cardiac Catheterization: Yes Hx Section: Yes (x2) Hx Hysterectomy: Yes (partial) Hx Orthopedic Surgery: Yes (Left ft tendon ruptured) - Anesthesia Hx Anesthesia: Yes Hx Anesthesia Reactions: No Hx Malignant Hyperthermia: No - Suicidal Assessment Feels Threatened In Home Enviroment: No Family/Social History - Physician Review Nursing Documentation Reviewed: Yes Family/Social History: No Known Family HX Smoking Status: Never Smoked Hx Alcohol Use: Yes Hx Substance Use: No Hx Substance Use Treatment: No Allergies/Home Meds Allergies/Adverse Reactions: Allergies milk Allergy (Verified 08/30/17 02:24) PAIN Penicillins Allergy (Verified 08/30/17 02:24) URTICARIA Home Medications: Home Meds Medication Instructions Recorded Confirmed Valsartan [Diovan] 80 mg PO DAILY 08/07/17 08/30/17 Review of Systems - Physician Review All systems were reviewed & negative as marked: Yes - Review of Systems Constitutional: absent: Fevers, Other (chills) Gastrointestinal: absent: Nausea Genitourinary Female: Dysuria Musculoskeletal: Other (left sided flank pain) Neurological: absent: Headache, Dizziness Physical Exam Vital Signs Reviewed: Yes Vital Signs Temp Pulse Resp BP Pulse Ox 08/30/17 02:30 75 18 138/87 97 08/30/17 02:25 97.6 F Appearance: Positive for: Well-Appearing, Non-Toxic, Comfortable Pain Distress: None Mental Status: Positive for: Alert and Oriented X 3 - Systems Exam Head: Present: Atraumatic, Normocephalic Pupils: Present: PERRL Extroacular Muscles: Present: EOMI Conjunctiva: Present: Normal Mouth: Present: Moist Mucous Membranes Neck: Present: Normal Range of Motion Respiratory/Chest: Present: Clear to Auscultation, Good Air Exchange. No: Respiratory Distress, Accessory Muscle Use Cardiovascular: Present: Regular Rate and Rhythm, Normal S1, S2. No: Murmurs Abdomen: Present: Normal Bowel Sounds. No: Tenderness, Distention, Peritoneal Signs Back: Present: Normal Inspection Upper Extremity: Present: Normal Inspection. No: Cyanosis, Edema Lower Extremity: Present: Normal Inspection. No: Edema Neurological: Present: GCS=15, CN II-XII Intact, Speech Normal Skin: Present: Warm, Dry, Normal Color. No: Rashes Psychiatric: Present: Alert, Oriented x 3, Normal Insight, Normal Concentration Medical Decision Making ED Course and Treatment: 08/30/17 02:49 Impression: A 42 year old female with left sided flank pain and dysuria. Plan: -- CT abd/pelvis -- labs -- Urinalysis -- Morphine, IV fluids, Zofran -- Reassess and disposition Prior Visits: Notes and results from previous visits were reviewed. Patient was last seen in the emergency department on 08/07/17 for evaluation of midsternal chest pain radiating to left arm. Progress Notes: CT Abdomen and Pelvis Without Intravenous Contrast FINDINGS: Lower thorax: No acute findings. ABDOMEN: Liver: Unremarkable. Gallbladder and bile ducts: No calcified stones. No ductal dilation. Pancreas: Unremarkable. No ductal dilation. Spleen: No splenomegaly. Adrenals: No mass. Kidneys and ureters: Large RIGHT renal cyst. Small LEFT renal cyst. No renal calculi. No hydronephrosis. Stomach and bowel: Few scattered diverticula within colon. No associated inflammatory stranding. No definite mural thickening. Few minimally distended loops of small bowel, likely ileus. Appendix: Normal caliber. No inflammation. PELVIS: Bladder: Unremarkable. No stones. Reproductive: Unremarkable as visualized. ABDOMEN and PELVIS: Intraperitoneal space: No significant fluid collection. No free air. Bones/joints: No acute fracture. Soft tissues: Unremarkable. Vasculature: Unremarkable. No aneurysm. Lymph nodes: No pathologically enlarged lymph nodes. IMPRESSION: 1. No definite CT evidence of urolithiasis. 2. Incidental/non-acute findings are described above. Dictated and Authenticated by: Miko West MD 08/30/2017 4:04 AM Eastern Time ([place] & [place]) Re-evaluation Time: 06:30 Reassessment Condition: Re-examined, Improved - Lab Interpretations Lab Results: 08/30/17 02:31 08/30/17 02:31 Lab Results 08/30/17 02:31: Sodium 140, Potassium 3.8, Chloride 104, Carbon Dioxide 26, Anion Gap 13, BUN 17, Creatinine 0.8, Est GFR ( Amer) > 60, Est GFR (Non- Af Amer) > 60, Random Glucose 101, Calcium 9.6, Total Bilirubin 1.0, AST 26, ALT 33, Alkaline Phosphatase 59, Total Protein 8.1, Albumin 4.4, Globulin 3.7, Albumin/Globulin Ratio 1.2 08/30/17 02:31: Urine Color Yellow, Urine Appearance Sl cloudy, Urine pH 6.5, Ur Specific [place] <= 1.005, Urine Protein Negative, Urine Glucose (UA) Negative, Urine Ketones Negative, Urine Blood Small H, Urine Nitrate Negative, Urine Bilirubin Negative, Urine Urobilinogen 0.2, Ur Leukocyte Esterase Moderate H, Urine RBC 1 - 3, Urine WBC 5 - 10, Ur Epithelial Cells 0 - 2, Urine Bacteria Mod, Urine HCG, Qual Negative 08/30/17 02:31: WBC 10.7 D, RBC 4.59, Hgb 13.9, Hct 40.4, MCV 88.0, MCH 30.3, MCHC 34.4, RDW 13.0, Plt Count 238, MPV 9.7, Gran % 67.3, Lymph % (Auto) 25.4, [place] % (Auto) 6.0, Eos % (Auto) 1.0 L, Baso % (Auto) 0.3, Gran # 7.21 H, Lymph # 2.7, [place] # 0.6, Eos # 0.1, Baso # 0.03 I have reviewed the lab results: Yes - RAD Interpretation Radiology Orders: 08/30/17 02:47 ABD & PELVIS W/O PO OR IV CONT [CT] Stat - Medication Orders Current Medication Orders: Sodium Chloride (Sodium Chloride 0.9%) 1,000 mls @ 100 mls/hr IV .Q10H STA Stop: 08/30/17 12:45 Last Admin: 08/30/17 02:55 Dose: 100 mls/hr eMAR Start Stop Document 08/30/17 02:55 IT (Rec: 08/30/17 02:55 [id number] Intravenous Solution Start Date 08/30/17 Start Time 02:55 Discontinued Medications Aztreonam (Azactam 1 Gm) 100 mls @ 100 mls/hr IVPB STAT STA PRN Reason: Protocol Stop: 08/30/17 04:55 Last Admin: 08/30/17 04:36 Dose: 100 mls/hr eMAR Start Stop Document 08/30/17 04:36 SS (Rec: 08/30/17 04:37 SS [id number]) Intravenous Solution Start Date 08/30/17 Start Time 04:37 Morphine Sulfate (Morphine) 2 mg IVP STAT STA Stop: 08/30/17 02:48 Last Admin: 08/30/17 03:02 Dose: 2 mg MAR Pain Assessment Document 08/30/17 03:02 IT (Rec: 08/30/17 03:02 [id number] Pain Reassessment Is this a pain reassessment? No Sleep Is patient sleeping during reassessment? No Presence of Pain Presence of Pain Yes Pain Scale Used Pain Scale Used Numeric Location Left, Right or Bilateral Bilateral Upper or Lower Lower Pain Location Body Site Abdomen Description Description Constant IVP Administration Document 08/30/17 03:02 IT (Rec: 08/30/17 03:02 IT [facility] [id number] Charges for Administration # of IVP Administrations 1 Ondansetron HCl (Zofran Inj) 4 mg IVP STAT STA Stop: 08/30/17 02:47 Last Admin: 08/30/17 03:02 Dose: 4 mg IVP Administration Document 08/30/17 03:02 IT (Rec: 08/30/17 03:02 [id number] Charges for Administration # of IVP Administrations 1 Tramadol HCl (Ultram) 50 mg PO STAT STA Stop: 08/30/17 03:58 Last Admin: 08/30/17 04:16 Dose: 50 mg MAR Pain Assessment Document 08/30/17 04:16 SS (Rec: 08/30/17 04:16 SS [id number]) Pain Reassessment Is this a pain reassessment? No Sleep Is patient sleeping during reassessment? No Presence of Pain Presence of Pain Yes Location Upper or Lower Lower Pain Location Body Site Abdomen - Scribe Statement The provider has reviewed the documentation as recorded by the Marissa Li Provider Scribe Attestation: All medical record entries made by the Scribrao were at my direction and personally dictated by me. I have reviewed the chart and agree that the record accurately reflects my personal performance of the history, physical exam, medical decision making, and the department course for this patient. I have also personally directed, reviewed, and agree with the discharge instructions and disposition. Disposition/Present on Arrival - Present on Arrival Any Indicators Present on Arrival: No History of DVT/PE: No History of Uncontrolled Diabetes: No Urinary Catheter: No History of Decub. Ulcer: No History Surgical Site Infection Following: None - Disposition Have Diagnosis and Disposition been Completed?: Yes Diagnosis: UTI (urinary tract infection) Disposition: HOME/ ROUTINE Disposition Time: 06:31 Condition: GOOD Discharge Instructions (ExitCare): Urinary Tract Infection in Women (ED) Prescriptions: Sulfamethoxazole/Trimethoprim [Bactrim DS 800 mg-160 mg] 1 tab PO BID #14 tab Referrals: Tanner Mcmillan [Primary Care Provider] - Follow up with primary Forms: [employer] (Cuban)
[2017-08-30 03:10] LABS: BASO # 0.03 K/mm3 (0.0-2.0); BASO % 0.3 % (0.0-3.0); EOS # 0.1 (0.0-0.7); GRAN # 7.21 (1.4-6.5); GRAN % 67.3 % (50.0-68.0); HEMATOCRIT 40.4 % (36.0-48.0); LYMPH # 2.7 (1.2-3.4); LYMPH % 25.4 % (22.0-35.0); MEAN CORPUSCULAR HEMOGLOBIN 30.3 pg (25.0-35.0); MEAN CORPUSCULAR HGB CONC 34.4 g/dl (31.0-37.0); MEAN PLATELET VOLUME 9.7 fl (7.0-11.0); MONO # 0.6 (0.1-0.6); PH,URINE 6.5 (4.7-8.0); URINE BILIRUBIN NEGATIVE (NEGATIVE); URINE BLOOD SMALL (NEGATIVE); URINE GLUCOSE (UA) NEGATIVE (NEGATIVE); URINE KETONE NEGATIVE (NEGATIVE); URINE LEUKOCYTE ESTERASE MODERATE Leu/uL (NEGATIVE); URINE PROTEIN NEGATIVE mg/dL (<30 mg/dL); URINE UROBILINOGEN 0.2 E.U./dL (<1 E.U./dL); WHITE BLOOD COUNT 10.7 10^3/ul (4.5-11.0)
[2017-08-30 03:12] LABS: URINE APPEARANCE SL CLOUDY (CLEAR); URINE COLOR YELLOW (YELLOW)
[2017-08-30 03:21] LABS: ALB/GLOB RATIO 1.2 (1.1-1.8); ALKALINE PHOSPHATASE 59 U/L (38-126); ALT/SGPT 33 U/L (7-56); AST/SGOT 26 U/L (14-36); BLOOD UREA NITROGEN 17 mg/dL (7-21); CALCIUM 9.6 mg/dL (8.4-10.5); CARBON DIOXIDE 26 mmol/L (21-33); CHLORIDE 104 mmol/L (98-107); GFR AFRICAN-AMERICAN > 60; GLUCOSE,RANDOM 101 mg/dL (70-110); POTASSIUM 3.8 mmol/L (3.6-5.0); SODIUM 140 mmol/L (132-148); TOTAL PROTEIN 8.1 g/dL (5.8-8.3)
[2017-08-30 03:24] LABS: URINE BACTERIA MOD (NEG); URINE EPITHELIAL CELLS 0 - 2 /hpf (0-5)
[2017-08-30] MEDS ORDERED: Aztreonam 1 Gm in NS 100mL 100 ML IVPB STA (03:56)
--- NOTE | 2017-08-30 04:04 | CT ---
EXAM: CT Abdomen and Pelvis Without Intravenous Contrast CLINICAL HISTORY: 42 years old, female; Pain; Abdominal pain; Flank; Left; Additional info: Left flank pain TECHNIQUE: Axial computed tomography images of the abdomen and pelvis without intravenous contrast. All CT scans at this facility use one or more dose reduction techniques, viz.: automated exposure control; ma/kV adjustment per patient size (including targeted exams where dose is matched to indication; i.e. head); or iterative reconstruction technique. Coronal and sagittal reformatted images were created and reviewed. COMPARISON: No relevant prior studies available. FINDINGS: Lower thorax: No acute findings. ABDOMEN: Liver: Unremarkable. Gallbladder and bile ducts: No calcified stones. No ductal dilation. Pancreas: Unremarkable. No ductal dilation. Spleen: No splenomegaly. Adrenals: No mass. Kidneys and ureters: Large RIGHT renal cyst. Small LEFT renal cyst. No renal calculi. No hydronephrosis. Stomach and bowel: Few scattered diverticula within colon. No associated inflammatory stranding. No definite mural thickening. Few minimally distended loops of small bowel, likely ileus. Appendix: Normal caliber. No inflammation. PELVIS: Bladder: Unremarkable. No stones. Reproductive: Unremarkable as visualized. ABDOMEN and PELVIS: Intraperitoneal space: No significant fluid collection. No free air. Bones/joints: No acute fracture. Soft tissues: Unremarkable. Vasculature: Unremarkable. No aneurysm. Lymph nodes: No pathologically enlarged lymph nodes. IMPRESSION: 1. No definite CT evidence of urolithiasis. 2. Incidental/non-acute findings are described above.
== END 2017-08-30 06:57 | disposition home or self-care (01) ==
LOC: ED 02:14
DX: N39.0 Urinary tract infection, site not specified (principal)
CPT/HCPCS: 74176; 80053; 81001; 84703; 85025; 87086; 87181; 96374; 96375; 99284; J2270; J2405; J7040

== ENCOUNTER 2017-11-23 19:45 | Emergency (ER) | payer SELFPAY ==
[2017-11-23 19:46] VITALS: BMI 40.3
[2017-11-23] MEDS ORDERED: Morphine 2 mg/ml ISec IM STA (20:03)
[2017-11-23 20:24] VITALS: RESP 18; TEMP 98.2
--- NOTE | 2017-11-23 21:09 | ED PDOC ---
Arrival/HPI - General Chief Complaint: Lower Extremity Problem/Injury Time Seen by Provider: 11/23/17 19:59 Historian: Patient - History of Present Illness Narrative History of Present Illness (Text): 11/23/17 21:06 A 42 year old female, whose past medical history includes pancreatitis, anxiety , hypertension and Atrial fibrillation, presents to the emergency department complaining of right ankle pain s/p a fall. The patient states that she was walking when she suddenly tripped and fell injuring her right ankle. The patient denies fevers, chills, LOC, headache, dizziness, chest pain, shortness of breath, dyspnea on exertion, cough, abdominal pain, nausea, vomiting, diarrhea, back pain, neck pain, urinary/bowel changes, or any other complaint. PMD: Dr. Tanner Mcmillan Time/Duration: Other (This Evening) Symptom Onset: Sudden Symptom Course: Unchanged Activities at Onset: Rest, Light Context: Walking Past Medical History - Provider Review Nursing Documentation Reviewed: Yes - Infectious Disease Hx of Infectious Diseases: None - Tetanus Immunization Tetanus Immunization: Up to Date - Cardiac Hx Cardiac Disorders: Yes Hx Atrial Fibrillation: Yes Hx Cardiac Arrhythmia: Yes (afib) Hx Hypertension: Yes Hx Peripheral Edema: Yes (+1 b/l) - Pulmonary Hx Respiratory Disorders: Yes Hx Pneumonia: Yes - Neurological Hx Neurological Disorder: No - HEENT Hx HEENT Disorder: No - Renal Hx Renal Disorder: Yes (cyst right kidney) Other/Comment: uti - Endocrine/Metabolic Hx Endocrine Disorders: No - Hematological/Oncological Hx Blood Disorders: No - Integumentary Hx Dermatological Disorder: No - Musculoskeletal/Rheumatological Hx Musculoskeletal Disorders: No Hx Falls: No - Gastrointestinal Hx Gastrointestinal Disorders: Yes (IBS, hemorrhoids) Hx Gastroesophageal Reflux: Yes Hx Pancreatitis: Yes - Genitourinary/Gynecological Hx Genitourinary Disorders: Yes (KIDNEY CYST RIGHT,C SECTION X2) Other/Comment: ovarian cysts hx abn pap cone bx,HPV, 2 miscarriages - Psychiatric Hx Psychophysiologic Disorder: No Hx Depression: No Hx Emotional Abuse: No Hx Physical Abuse: No Hx Substance Use: No - Surgical History Hx Cardiac Catheterization: Yes Hx Section: Yes (x2) Hx Hysterectomy: Yes (partial) Hx Orthopedic Surgery: Yes (Left ft tendon ruptured) - Anesthesia Hx Anesthesia: Yes Hx Anesthesia Reactions: No Hx Malignant Hyperthermia: No - Suicidal Assessment Feels Threatened In Home Enviroment: No Family/Social History - Physician Review Nursing Documentation Reviewed: Yes Family/Social History: No Known Family HX Smoking Status: Never Smoked Hx Alcohol Use: Yes Hx Substance Use: No Hx Substance Use Treatment: No Allergies/Home Meds Allergies/Adverse Reactions: Allergies milk Allergy (Verified 08/30/17 02:24) PAIN Penicillins Allergy (Verified 08/30/17 02:24) URTICARIA Home Medications: Home Meds Medication Instructions Recorded Confirmed Valsartan [Diovan] 80 mg PO DAILY 08/07/17 08/30/17 Review of Systems - Physician Review All systems were reviewed & negative as marked: Yes - Review of Systems Constitutional: absent: Fevers, Night Sweats Respiratory: absent: SOB, Cough Cardiovascular: absent: Chest Pain, LOPEZ Gastrointestinal: absent: Abdominal Pain, Diarrhea, Nausea, Vomiting Musculoskeletal: Other (Right ankle pain s/p fall.). absent: Back Pain, Neck Pain Neurological: absent: Headache, Dizziness Physical Exam Vital Signs Reviewed: Yes Vital Signs Temp Pulse Resp BP Pulse Ox 11/23/17 21:35 78 18 128/76 98 11/23/17 20:23 98.2 F 79 18 138/79 97 Temperature: Afebrile Blood Pressure: Normal Pulse: Regular Respiratory Rate: Normal Appearance: Positive for: Well-Appearing, Non-Toxic, Comfortable Pain Distress: None Mental Status: Positive for: Alert and Oriented X 3 - Systems Exam Head: Present: Atraumatic, Normocephalic Pupils: Present: PERRL Extroacular Muscles: Present: EOMI Conjunctiva: Present: Normal Mouth: Present: Moist Mucous Membranes Neck: Present: Normal Range of Motion Respiratory/Chest: Present: Clear to Auscultation, Good Air Exchange. No: Respiratory Distress, Accessory Muscle Use Cardiovascular: Present: Regular Rate and Rhythm, Normal S1, S2. No: Murmurs Abdomen: Present: Normal Bowel Sounds. No: Tenderness, Distention, Peritoneal Signs Back: Present: Normal Inspection Upper Extremity: Present: Normal Inspection. No: Cyanosis, Edema Lower Extremity: Present: Swelling (Swelling to the lateral malleoulus). No: CALF TENDERNESS, Other (Numbness. No paresthesia.) Neurological: Present: GCS=15, CN II-XII Intact, Speech Normal Skin: Present: Warm, Dry, Normal Color. No: Rashes Psychiatric: Present: Alert, Oriented x 3, Normal Insight, Normal Concentration Medical Decision Making ED Course and Treatment: 11/23/17 21:14 Impression: A 42 year old female presents to the emergency department complaining of right ankle pain s/p a fall. Plan: -- Ankle X-Ray -- Morphine -- Reassess and disposition Progress Notes: Right X-ray read and interpreted by me shown no acute findings. - RAD Interpretation Radiology Orders: 11/23/17 20:04 ANKLE RIGHT 3 VIEWS ROUTINE [RAD] Stat - Medication Orders Current Medication Orders: Discontinued Medications Morphine Sulfate (Morphine) 2 mg IM STAT STA Stop: 11/23/17 20:04 Last Admin: 11/23/17 20:14 Dose: 2 mg MAR Pain Assessment Document 11/23/17 20:14 MARIA EUGENIA (Rec: 11/23/17 20:14 [id number] Pain Reassessment Is this a pain reassessment? No Sleep Is patient sleeping during reassessment? No Presence of Pain Presence of Pain Yes Pain Scale Used Pain Scale Used Numeric Location Left, Right or Bilateral Right Pain Location Body Site Ankle Description Intensity of Pain at present 10 Pain Behavior Withdrawal from Touch Restlessness Facial Grimacing Aggravating Factors ADL's Changing Position Alleviating Factors/Management Medication Techniques IM Administration Charges Document 11/23/17 20:14 JOAmrita (Rec: 11/23/17 20:14 [id number]) Injection Site MAR Injection Site Left Deltoid Charges for Administration # of IM Administrations 1 - Scribe Statement The provider has reviewed the documentation as recorded by the Scribe Felicitas Deshpande Provider Scribe Attestation: All medical record entries made by the Scribe were at my direction and personally dictated by me. I have reviewed the chart and agree that the record accurately reflects my personal performance of the history, physical exam, medical decision making, and the department course for this patient. I have also personally directed, reviewed, and agree with the discharge instructions and disposition. Disposition/Present on Arrival - Present on Arrival Any Indicators Present on Arrival: No History of DVT/PE: No History of Uncontrolled Diabetes: No Urinary Catheter: No History of Decub. Ulcer: No History Surgical Site Infection Following: None - Disposition Have Diagnosis and Disposition been Completed?: Yes Diagnosis: Right ankle sprain Disposition: HOME/ ROUTINE Disposition Time: 21:35 Condition: GOOD Discharge Instructions (ExitCare): Ankle Sprain (DC) Additional Instructions: use asplint 4 to 5 days follow up with dr nation Prescriptions: Tramadol HCl [Ultram] 50 mg PO QID #10 tab Referrals: Hank Dawson, [Non-Staff] - Follow up with primary Tanner Nation DO [Staff Provider] - Follow up with primary Forms: [employer] (Ukrainian)
[2017-11-24 04:30] VITALS: BP 128/76; PULSE 78; O2SAT 98
--- NOTE | 2017-11-24 08:54 | RAD ---
PROCEDURE: Right Ankle Radiographs. HISTORY: fall COMPARISON: None FINDINGS: BONES: No acute fracture or destructive bony lesion identified. An accessory ossicle seen inferior to the lateral malleolus. JOINTS: Normal. No osteoarthritis. Ankle mortise maintained. Talar dome intact SOFT TISSUES: Prominent soft tissue edema overlies the lateral malleolus. Note is also made of a linear radiodensity at the right lateral plantar foot soft tissues posted lateral to the base of the 5th metatarsal bone potentially reflecting retained radiodense foreign body. OTHER FINDINGS: None. IMPRESSION: No acute fracture dislocation is identified at the right ankle. Prominent lateral malleolar soft tissue edema is appreciated. A linear radiodensity seen in the lateral plantar soft tissues of the mid to hindfoot likely representing a retained radiodense foreign body. It is unclear whether this is acute or chronic. Clinically correlate further. No prior comparison available. (PA review submitted)
== END 2017-11-23 21:35 | disposition home or self-care (01) ==
LOC: ED 19:45
DX: S93.401A Sprain of unspecified ligament of right ankle, initial encounter (principal); W01.0XXA Fall on same level from slipping, tripping and stumbling without subsequent striking against object, initial encounter; Y93.01 Activity, walking, marching and hiking; I48.91 Unspecified atrial fibrillation
CPT/HCPCS: 73610; 96372; 99284; J2270

== ENCOUNTER 2017-12-11 15:22 | Emergency (ER) | payer MEDICAID, OTHER ==
[2017-12-11 15:22] VITALS: BMI 40.3
--- NOTE | 2017-12-11 16:38 | ED PDOC ---
Arrival/HPI - General Chief Complaint: Lower Extremity Problem/Injury Time Seen by Provider: 12/11/17 16:33 Historian: Patient - History of Present Illness Narrative History of Present Illness (Text): 12/11/17 16:38 This 42 yo female presents to this ED c/o worsening of pain and swelling of her right ankle pain x 2 weeks ago. Patient stated she tripped and fell down causing her to twist her ankle. Patient also said she has not been able to make an appointment with Dr. Ojeda. Patient denies fever, sob, cp, or abnormal gait. Time/Duration: Other (see hpi) Context: Walking Past Medical History - Provider Review Nursing Documentation Reviewed: Yes - Infectious Disease Hx of Infectious Diseases: None - Tetanus Immunization Tetanus Immunization: Up to Date - Cardiac Hx Cardiac Disorders: Yes Hx Atrial Fibrillation: Yes Hx Cardiac Arrhythmia: Yes (afib) Hx Hypertension: Yes Hx Peripheral Edema: Yes (+1 b/l) - Pulmonary Hx Respiratory Disorders: Yes Hx Pneumonia: Yes - Neurological Hx Neurological Disorder: No - HEENT Hx HEENT Disorder: No - Renal Hx Renal Disorder: Yes (cyst right kidney) Other/Comment: uti - Endocrine/Metabolic Hx Endocrine Disorders: No - Hematological/Oncological Hx Blood Disorders: No - Integumentary Hx Dermatological Disorder: No - Musculoskeletal/Rheumatological Hx Musculoskeletal Disorders: Yes Other/Comment: R ANKLE INJURY - Gastrointestinal Hx Gastrointestinal Disorders: Yes (IBS, hemorrhoids) Hx Gastroesophageal Reflux: Yes Hx Pancreatitis: Yes - Genitourinary/Gynecological Hx Genitourinary Disorders: Yes (KIDNEY CYST RIGHT,C SECTION X2) Other/Comment: ovarian cysts hx abn pap cone bx,HPV, 2 miscarriages - Psychiatric Hx Psychophysiologic Disorder: No Hx Depression: No Hx Emotional Abuse: No Hx Physical Abuse: No Hx Substance Use: No - Surgical History Hx Cardiac Catheterization: Yes Hx Section: Yes (x2) Hx Hysterectomy: Yes (partial) Hx Orthopedic Surgery: Yes (Left ft tendon ruptured) - Anesthesia Hx Anesthesia: Yes - Suicidal Assessment Feels Threatened In Home Enviroment: No Family/Social History - Physician Review Nursing Documentation Reviewed: Yes Family/Social History: Other (noncontributory) Smoking Status: Never Smoked Hx Alcohol Use: Yes Hx Substance Use: No Hx Substance Use Treatment: No Allergies/Home Meds Allergies/Adverse Reactions: Allergies milk Allergy (Verified 12/11/17 15:58) PAIN Penicillins Allergy (Verified 12/11/17 15:58) URTICARIA Home Medications: Home Meds Medication Instructions Recorded Confirmed Metoprolol Tartrate [Lopressor] 25 mg PO BID 12/11/17 12/11/17 Review of Systems - Review of Systems Constitutional: Normal. absent: Fatigue, Weight Change, Fevers Eyes: Normal ENT: Normal Respiratory: Normal Cardiovascular: Normal Gastrointestinal: Normal Genitourinary Female: Normal Musculoskeletal: Other (right foot pain and swelling) Skin: Normal Neurological: Normal Endocrine: Normal Hemo/Lymphatic: Normal Psychiatric: Normal Physical Exam Vital Signs Temp Pulse Resp BP Pulse Ox 12/11/17 17:34 71 18 135/86 98 12/11/17 16:04 98.7 F 76 16 137/91 H 97 Temperature: Afebrile Blood Pressure: Normal Pulse: Regular Respiratory Rate: Normal Appearance: Positive for: Well-Appearing, Non-Toxic, Comfortable Pain Distress: None Mental Status: Positive for: Alert and Oriented X 3 - Systems Exam Head: Present: Atraumatic, Normocephalic Pupils: Present: PERRL Extroacular Muscles: Present: EOMI Conjunctiva: Present: Normal Mouth: Present: Moist Mucous Membranes Neck: Present: Normal Range of Motion Respiratory/Chest: Present: Clear to Auscultation, Good Air Exchange. No: Respiratory Distress, Accessory Muscle Use Cardiovascular: Present: Regular Rate and Rhythm, Normal S1, S2. No: Murmurs Abdomen: Present: Normal Bowel Sounds. No: Tenderness, Distention, Peritoneal Signs Back: Present: Normal Inspection Upper Extremity: Present: Normal Inspection. No: Cyanosis, Edema Lower Extremity: Present: NORMAL PULSES, Normal ROM, Tenderness, Swelling, Neurovascularly Intact, Capillary Refill < 2 s, Other (No puncture wound. No cellulitis. No abscess). No: Edema, CALF TENDERNESS, Erythema, Temperature Abnormalties Neurological: Present: GCS=15, CN II-XII Intact, Speech Normal, Motor Func Grossly Intact, Normal Sensory Function, Normal Cerebellar Funct Skin: Present: Warm, Dry, Normal Color. No: Rashes Psychiatric: Present: Alert, Oriented x 3, Normal Insight, Normal Concentration Medical Decision Making ED Course and Treatment: 12/11/17 18:32 Re-evaluation. Patient feels better. Discussed results and plan with patient who expresses understanding. All questions answered and there is agreement with the plan to discharge home with instructions. Patient stable for discharge. Return if symptoms persist or worsen. Patient denies recent puncture wound on her right foot. I told patient that she has a FB on her right foot. She was recommended to see Podiatry clinic for revaluation. Since there is a FB of ukn age, I recommended patient to do a trial with antibiotic. To return to emergency if symptoms worsen. Ortega wrap was applied by entry level installation technician Re-evaluation Time: 18:36 Reassessment Condition: Re-examined, Improved - RAD Interpretation Narrative RAD Interpretations (Text): 12/11/17 18:36 Foot/ankle x-rays: No Fx. (+) FB visualized Radiology Orders: 12/11/17 16:36 FOOT RIGHT 3 VIEWS ROUTINE [RAD] Stat 12/11/17 16:37 ANKLE RIGHT 3 VIEWS ROUTINE [RAD] Stat DUPLEX LOWER EXTRM VEIN RIGHT [US] Stat - Medication Orders Current Medication Orders: Discontinued Medications Clindamycin HCl (Cleocin) 300 mg PO STAT STA PRN Reason: Protocol Stop: 12/11/17 18:42 Ketorolac Tromethamine (Toradol) 30 mg IM STAT STA Stop: 12/11/17 16:39 Last Admin: 12/11/17 17:01 Dose: 30 mg MAR Pain Assessment Document 12/11/17 17:01 GMD (Rec: 12/11/17 17:02 GMD [id number]) Pain Reassessment Is this a pain reassessment? No Presence of Pain Presence of Pain Yes Location Left, Right or Bilateral Right Upper or Lower Lower Pain Location Body Site Leg IM Administration Charges Document 12/11/17 17:01 GMD (Rec: 12/11/17 17:02 GMD [id number]) Injection Site MAR Injection Site Left Deltoid Charges for Administration # of IM Administrations 1 Disposition/Present on Arrival - Present on Arrival Any Indicators Present on Arrival: No History of DVT/PE: No History of Uncontrolled Diabetes: No Urinary Catheter: No History of Decub. Ulcer: No History Surgical Site Infection Following: None - Disposition Have Diagnosis and Disposition been Completed?: Yes Diagnosis: Foot pain, right, Foreign body (FB) in soft tissue Disposition: HOME/ ROUTINE Disposition Time: 18:37 Patient Plan: Discharge Patient Problems: Current Active Problems Problem Status Onset Foot pain, right Acute Foreign body (FB) in soft tissue Acute Condition: GOOD Discharge Instructions (ExitCare): Foreign Body in Skin (DC) Additional Instructions: Call private doctor for follow up visit in 1-2 days. Take medication as instructed. Make sure to call epic prelude analyst or Ortho clinic for revaluation. Continues with rest, elevation, crutches. Return to emergency if symptoms worsen. Prescriptions: Clindamycin [Cleocin] 300 mg PO TID #21 cap Famotidine [Pepcid] 40 mg PO DAILY #10 tablet Naproxen 500 mg PO BID PRN #14 tablet PRN Reason: Pain, Severe (8-10) Referrals: Tanner Mcmlilan [Primary Care Provider] - Follow up with primary [facility] [Outside] - Follow up with primary Podiatry Clinic [Outside] - Follow up with primary Forms: [employer] (Mongolian)
[2017-12-11 16:46] VITALS: TEMP 98.7
[2017-12-11 17:35] VITALS: BP 135/86; PULSE 71; RESP 18; O2SAT 98
--- NOTE | 2017-12-11 21:19 | US ---
PROCEDURE: Right lower extremity venous US HISTORY: Leg pain and swelling. Evaluate for DVT. PHYSICIAN(S): Memo Aragon M.D. TECHNIQUE: Duplex sonography and color-flow Doppler with graded compression were used to evaluate the deep venous system of the right lower extremity. FINDINGS: The visualized deep venous system of the right lower extremity is sonographically normal and compressible. Normal waveforms and augmentation are seen. There is no sonographic evidence for deep venous thrombosis in the visualized segments of the right lower extremity. IMPRESSION: 1. No sonographic evidence for deep venous thrombosis in the visualized segments of the right lower extremity.
--- NOTE | 2017-12-12 08:54 | RAD ---
PROCEDURE: Right Ankle Radiographs. HISTORY: pain COMPARISON: None FINDINGS: BONES: There is no evidence of acute fracture. There is a well corticated bony fragment inferior to the lateral malleolus consistent with a previous injury JOINTS: Normal. No osteoarthritis. Ankle mortise maintained. Talar dome intact SOFT TISSUES: There is a small metallic foreign body adjacent to the base of the 5th metatarsal. This is unchanged OTHER FINDINGS: None. IMPRESSION: No acute findings
--- NOTE | 2017-12-12 09:01 | RAD ---
PROCEDURE: Right Foot Radiographs. HISTORY: pain COMPARISON: None. FINDINGS: BONES: Normal. No fracture. JOINTS: Normal. SOFT TISSUES: There is a small metallic foreign body in the region of the base of the 5th metatarsal along the plantar aspect of the foot. OTHER FINDINGS: None. IMPRESSION: No acute findings
== END 2017-12-11 19:12 | disposition home or self-care (01) ==
LOC: ED 15:22
DX: M79.671 Pain in right foot (principal); S90.851A Superficial foreign body, right foot, initial encounter; W01.0XXA Fall on same level from slipping, tripping and stumbling without subsequent striking against object, initial encounter; I10 Essential (primary) hypertension; I48.91 Unspecified atrial fibrillation
CPT/HCPCS: 73610; 73630; 93971; 96372; 99285; J1885

== ENCOUNTER 2018-01-21 12:29 | Emergency (ER) | payer OTHER ==
[2018-01-21 12:29] VITALS: BMI 40.3
--- NOTE | 2018-01-21 12:51 | ED PDOC ---
Arrival/HPI - General Historian: Patient <Thang Bloom - Last Filed: 01/21/18 13:31> <Francisco JavierLouis noriega - Last Filed: 01/21/18 17:25> - General Chief Complaint: Allergic Reaction Time Seen by Provider: 01/21/18 12:50 - History of Present Illness Narrative History of Present Illness (Text): 01/21/18 12:50 42 y/o female, pmh including ovarian cyst and TIA, penicllin allergy, c/o painful rash on the rt. facial region x 2 days with no change in soap/clothing/ detergent. Pt. stated that she had chicken pox as a child and never been immunized, been stressing out lately due to out of work for couple weeks, started to have rt. ear pain 4 days ago and started with facial rash 2 days ago. Painful rash, burning type, no eye pain, no change in vision, no numbness or tingling, no night sweat, no palpitation, no other medical or psychological complaints. (Thang Bloom) Past Medical History - Provider Review Nursing Documentation Reviewed: Yes - Infectious Disease Hx of Infectious Diseases: None - Tetanus Immunization Tetanus Immunization: Up to Date - Cardiac Hx Cardiac Disorders: Yes Hx Atrial Fibrillation: Yes Hx Cardiac Arrhythmia: Yes (afib) Hx Hypertension: Yes Hx Peripheral Edema: Yes (+1 b/l) - Pulmonary Hx Respiratory Disorders: Yes Hx Pneumonia: Yes - Neurological Hx Neurological Disorder: No - HEENT Hx HEENT Disorder: No - Renal Hx Renal Disorder: Yes (cyst right kidney) Other/Comment: uti - Endocrine/Metabolic Hx Endocrine Disorders: No - Hematological/Oncological Hx Blood Disorders: No - Integumentary Hx Dermatological Disorder: No - Musculoskeletal/Rheumatological Hx Musculoskeletal Disorders: Yes Other/Comment: R ANKLE INJURY - Gastrointestinal Hx Gastrointestinal Disorders: Yes (IBS, hemorrhoids) Hx Gastroesophageal Reflux: Yes Hx Pancreatitis: Yes - Genitourinary/Gynecological Hx Genitourinary Disorders: Yes (KIDNEY CYST RIGHT,C SECTION X2) Other/Comment: ovarian cysts hx abn pap cone bx,HPV, 2 miscarriages - Psychiatric Hx Psychophysiologic Disorder: No Hx Depression: No Hx Emotional Abuse: No Hx Physical Abuse: No Hx Substance Use: No - Surgical History Hx Cardiac Catheterization: Yes Hx Section: Yes (x2) Hx Hysterectomy: Yes (partial) Hx Orthopedic Surgery: Yes (Left ft tendon ruptured) - Anesthesia Hx Anesthesia: Yes - Suicidal Assessment Feels Threatened In Home Enviroment: No <Thang Bloom - Last Filed: 01/21/18 13:31> Family/Social History - Physician Review Nursing Documentation Reviewed: Yes Family/Social History: Unknown Family HX Smoking Status: Never Smoked Hx Alcohol Use: Yes Hx Substance Use: No Hx Substance Use Treatment: No <Thang Bloom - Last Filed: 01/21/18 13:31> Allergies/Home Meds <Thang Bloom - Last Filed: 01/21/18 13:31> <Louis Mcintyre - Last Filed: 01/21/18 17:25> Allergies/Adverse Reactions: Allergies milk Allergy (Verified 01/21/18 12:36) PAIN Penicillins Allergy (Verified 01/21/18 12:36) URTICARIA Home Medications: Home Meds Medication Instructions Recorded Confirmed Ciprofloxacin/Hydrocortisone 2 drop AU Q6 01/21/18 01/21/18 [Cipro Hc Otic Suspension] Clindamycin [Cleocin] 300 mg PO TID 01/21/18 01/21/18 Review of Systems - Review of Systems Constitutional: absent: Fatigue, Fevers Eyes: absent: Vision Changes ENT: absent: Hearing Changes Respiratory: absent: SOB, Cough Cardiovascular: absent: Chest Pain Gastrointestinal: absent: Abdominal Pain, Nausea, Vomiting Skin: Rash, Pruritis, Skin Lesions. absent: Laceration, Abscess, Ulcer, Cellulitis Neurological: absent: Headache, Dizziness Psychiatric: absent: Anxiety, Depression, Suicidal Ideation <Thang Bloom - Last Filed: 01/21/18 13:31> Physical Exam Vital Signs Reviewed: Yes Temperature: Afebrile Blood Pressure: Normal Pulse: Regular Respiratory Rate: Normal Appearance: Positive for: Well-Appearing, Non-Toxic, Comfortable Pain Distress: Moderate Mental Status: Positive for: Alert and Oriented X 3 - Systems Exam Head: Present: Atraumatic, Normocephalic Pupils: Present: PERRL Extroacular Muscles: Present: EOMI Conjunctiva: Present: Normal Ears: Present: Normal, NORMAL TM, Normal Canal. No: Erythema, TM Bulging, Fluid , TM Perf Mouth: Present: Moist Mucous Membranes Neck: Present: Normal Range of Motion Respiratory/Chest: Present: Clear to Auscultation, Good Air Exchange. No: Respiratory Distress, Accessory Muscle Use Cardiovascular: Present: Regular Rate and Rhythm, Normal S1, S2. No: Murmurs Abdomen: No: Tenderness, Distention, Peritoneal Signs Back: Present: Normal Inspection Upper Extremity: Present: Normal Inspection. No: Cyanosis, Edema Lower Extremity: Present: Normal Inspection. No: Edema Neurological: Present: GCS=15, Speech Normal, Motor Func Grossly Intact, Gait Normal, Memory Normal Skin: Present: Warm, Dry, Rashes (Rt. facial region visible vesicular lesions unilateral doesn't cross the left unilateral, no ulcers, no periorbital lesion or rashes, no painful movement of the eye. ), Normal Color Psychiatric: Present: Alert, Oriented x 3, Normal Insight, Normal Concentration <Thang Blomo - Last Filed: 01/21/18 13:31> Vital Signs Temp Pulse Resp BP Pulse Ox 01/21/18 14:22 98.9 F 89 20 124/85 100 01/21/18 12:39 98.0 F 91 H 16 139/88 96 Medical Decision Making <Thang Bloom - Last Filed: 01/21/18 13:31> <Louis Mcintyre - Last Filed: 01/21/18 17:25> ED Course and Treatment: 01/21/18 13:11 -Urine hcg is negative -Valtrex/percocet/prednisone/gabapentin -I checked the [facility] report, no visible history of drug abuse. -Discharge home with prednisone, valtrex, gabapentin, continue naproxen at home , avoid rubbing or touching the rt. facial region, avoid sun tanning, stay at home and avoid contact with any person until rash resolved, follow up with your own pmd and lather apprentice/infectious disease within 2 days, return to the ER for any new or worsening signs or symptoms. (Thang Bloom) - Medication Orders Current Medication Orders: Discontinued Medications Gabapentin (Neurontin) 300 mg PO STAT MARIBETH PRN Reason: Protocol Last Admin: 01/21/18 13:27 Dose: 300 mg Oxycodone/Acetaminophen (Percocet 5/325 Mg Tab) 1 tab PO STAT STA Stop: 01/21/18 13:02 Last Admin: 01/21/18 13:28 Dose: 1 tab MAR Pain Assessment Document 01/21/18 13:28 GMI (Rec: 01/21/18 13:28 G[facility] [place]) Pain Reassessment Is this a pain reassessment? Yes Sleep Is patient sleeping during reassessment? No Presence of Pain Presence of Pain Yes Location Pain Location Body Site Face Description Description Sharp Intensity of Pain at present 9 Pain Behavior Facial Grimacing Alleviating Factors/Management Relaxation Techniques Techniques Alleviating Factors Medication Prednisone (Prednisone Tab) 60 mg PO STAT ONE Stop: 01/21/18 13:04 Last Admin: 01/21/18 13:28 Dose: 60 mg Valacyclovir HCl (Valtrex) 1 gm PO STAT STA PRN Reason: Protocol Stop: 01/21/18 13:02 Last Admin: 01/21/18 13:27 Dose: 1 gm - PA / CATALYST OPERATOR / Resident Statement / has reviewed & agrees with the documentation as recorded. <Thang Bloom - Last Filed: 01/21/18 13:31> - PA / CATALYST OPERATOR / Resident Statement / has reviewed & agrees with the documentation as recorded. <Louis Mcintyre - Last Filed: 01/21/18 17:25> Disposition/Present on Arrival - Present on Arrival Any Indicators Present on Arrival: No History of DVT/PE: No History of Uncontrolled Diabetes: No Urinary Catheter: No History of Decub. Ulcer: No History Surgical Site Infection Following: None - Disposition Have Diagnosis and Disposition been Completed?: Yes Disposition Time: 13:13 Patient Plan: Discharge <Thang Bloom - Last Filed: 01/21/18 13:31> <Louis Mcintyre - Last Filed: 01/21/18 17:25> - Disposition Diagnosis: Herpes zoster Disposition: HOME/ ROUTINE Condition: GOOD Discharge Instructions (ExitCare): Shingles (ED) Additional Instructions: -Discharge home with prednisone, valtrex, gabapentin, continue naproxen at home , avoid rubbing or touching the rt. facial region, avoid sun tanning, stay at home and avoid contact with any person until rash resolved, follow up with your own pmd and lather apprentice/infectious disease within 2 days, return to the ER for any new or worsening signs or symptoms. Prescriptions: Gabapentin [Neurontin] 100 mg PO TID PRN #18 cap PRN Reason: Other oxyCODONE/Acetaminophen [Percocet 5/325 mg Tab] 1 tab PO QID PRN #12 tab PRN Reason: Pain, Severe (8-10) Prednisone 50 mg PO DAILY #5 tab Valacyclovir HCl [Valtrex] 1 gm PO TID #21 tablet Referrals: Chan García MD [Staff Provider] - Follow up with primary Claudio Doyle MD [Staff Provider] - Follow up with primary Forms: WORK NOTE
[2018-01-21] MEDS ORDERED: Oxycodone/Acetaminophen 5/325 mg Tab PO STA (13:01)
[2018-01-21 14:28] VITALS: BP 124/85; PULSE 89; RESP 20; TEMP 98.9; O2SAT 100
== END 2018-01-21 14:33 | disposition home or self-care (01) ==
LOC: ED 12:29
DX: B02.9 Zoster without complications (principal); I10 Essential (primary) hypertension; I48.91 Unspecified atrial fibrillation

== ENCOUNTER 2018-09-02 17:23 | Emergency (ER) | payer MEDICAID ==
[2018-09-02 17:53] VITALS: BMI 38.2
[2018-09-02 17:54] VITALS: RESP 18; O2SAT 100
[2018-09-02] MEDS ORDERED: Albuterol-Ipratrop 3 mg / 0.5 (3 ml) UD IH STA (18:31)
--- NOTE | 2018-09-02 18:33 | ED PDOC ---
Arrival/HPI - General Chief Complaint: Cough, Cold, Congestion Time Seen by Provider: 09/02/18 17:47 Historian: Patient - History of Present Illness Narrative History of Present Illness (Text): 09/02/18 18:33 43 year old female whose past medical history includes frequent UTI, atrial fibrillation, myocardial infarction, and TIA, who presents to the Emergency department complaining of fever, chills, and fatigue for the past few days. Patient reports that her family members have had cold like symptoms recently. She started experiencing coughing, vomiting, and shortness of breath in the last 24 hours. Her cough started out as nonproductive, but has become productive. Per patient her temperature was at 104F this morning, and she tried taking Ibuprofen 600mg, and tried Azo for possible UTI, but with no improvement of her fever. Of note she hasn't had the flu vaccine today. Patient had right lower extremity surgery in June, and since then has reduced the amount of walking. She notes right lower extremity edema. Patient denies chest pain, dyspnea on exertion, abdominal pain, diarrhea, neck pain, headache, dizziness, or any other complaint. Allergic to Penicillin Time/Duration: < week Symptom Onset: Gradual Symptom Course: Worsening Context: Home Past Medical History - Provider Review Nursing Documentation Reviewed: Yes - Infectious Disease Hx of Infectious Diseases: None - Tetanus Immunization Tetanus Immunization: Up to Date - Cardiac Hx Cardiac Disorders: Yes Hx Atrial Fibrillation: Yes Hx Cardiac Arrhythmia: Yes Hx WA: Yes Hx Hypertension: Yes Hx Peripheral Edema: Yes (+1 b/l) Other/Comment: atrial fibrillation - Pulmonary Hx Respiratory Disorders: Yes Hx Pneumonia: Yes - Neurological Hx Neurological Disorder: No - HEENT Hx HEENT Disorder: No - Renal Hx Renal Disorder: Yes Other/Comment: uti - Endocrine/Metabolic Hx Endocrine Disorders: No - Hematological/Oncological Hx Blood Disorders: No - Integumentary Hx Dermatological Disorder: No - Musculoskeletal/Rheumatological Hx Musculoskeletal Disorders: Yes Hx Fractures: Yes (left leg fracture) Other/Comment: R ANKLE INJURY - Gastrointestinal Hx Gastrointestinal Disorders: Yes Hx Gastroesophageal Reflux: Yes Hx Irritable Bowel: Yes Hx Pancreatitis: Yes Other/Comment: Hx of Endoscopy with Dr. Johnny Neri. - Genitourinary/Gynecological Hx Genitourinary Disorders: Yes Other/Comment: ovarian cysts hx abn pap cone bx,HPV, 2 miscarriages - Psychiatric Hx Psychophysiologic Disorder: No Hx Substance Use: No - Surgical History Hx Cardiac Catheterization: Yes Hx Section: Yes (x2) Hx Dilation and Curettage: Yes (miscarriage) Hx Hysterectomy: Yes (partial) Hx Orthopedic Surgery: Yes (Left ft tendon ruptured) Other/Comment: cath-neg - Anesthesia Hx Anesthesia: Yes Hx Anesthesia Reactions: No Hx Malignant Hyperthermia: No - Suicidal Assessment Feels Threatened In Home Enviroment: No Family/Social History - Physician Review Nursing Documentation Reviewed: Yes Family/Social History: No Known Family HX Smoking Status: Never Smoked Hx Alcohol Use: Yes Hx Substance Use: No Hx Substance Use Treatment: No Allergies/Home Meds Allergies/Adverse Reactions: Allergies milk Allergy (Verified 09/02/18 17:54) PAIN Penicillins Allergy (Verified 09/02/18 17:54) URTICARIA Home Medications: Home Meds Medication Instructions Recorded Confirmed No Known Home Med 09/02/18 09/02/18 Review of Systems - Physician Review All systems were reviewed & negative as marked: Yes - Review of Systems Constitutional: Fevers, Other (chills) Respiratory: SOB, Cough Cardiovascular: Edema. absent: Chest Pain Gastrointestinal: Vomiting. absent: Abdominal Pain, Constipation, Diarrhea Musculoskeletal: Back Pain. absent: Neck Pain Neurological: absent: Headache, Dizziness Physical Exam Vital Signs Reviewed: Yes Vital Signs Temp Pulse Resp BP Pulse Ox 09/02/18 17:53 97.9 F 63 18 143/86 100 Temperature: Afebrile Blood Pressure: Normal Pulse: Regular Respiratory Rate: Normal Appearance: Positive for: Well-Appearing Mental Status: Positive for: Alert and Oriented X 3 - Systems Exam Head: Present: Atraumatic, Normocephalic Pupils: Present: PERRL Extroacular Muscles: Present: EOMI Conjunctiva: Present: Normal Mouth: Present: Moist Mucous Membranes Neck: Present: Normal Range of Motion Respiratory/Chest: Present: Clear to Auscultation, Decreased Breath Sounds (due to body habitus). No: Respiratory Distress, Accessory Muscle Use, Wheezes, Rales, Rhonchi Cardiovascular: Present: Regular Rate and Rhythm, Normal S1, S2. No: Murmurs Abdomen: Present: Tenderness (suprapubic tenderness). No: Distention, Peritoneal Signs Back: Present: Normal Inspection, CVA Tenderness (right CVA tenderness) Upper Extremity: Present: Normal Inspection. No: Cyanosis, Edema Lower Extremity: Present: Normal Inspection, Other (UNNA boot noted on right foot.). No: Edema Neurological: Present: GCS=15, CN II-XII Intact, Speech Normal Skin: Present: Warm, Dry, Normal Color. No: Rashes Psychiatric: Present: Alert, Oriented x 3, Normal Insight, Normal Concentration Medical Decision Making ED Course and Treatment: 09/02/18 18:33 Impression: 43 year old female complaining of fever, chills, and fatigue for the past few days. She started experiencing coughing, shortness of breath, and vomiting in the last 24 hours. Differential Diagnosis included but are not limited to: Bronchitis Pneumonia UTI Plan: -- Labs -- Blood work -- D-dimer -- EKG -- Chest X-ray -- Duoneb -- Prednisone -- Flu test -- Urine culture -- Reassess and disposition Prior Visits: Notes and results from previous visits were reviewed. Progress Notes: 09/02/18 20:06 Patient endorsed to . Pending urinalysis and D-dimer. - EKG Interpretation EKG Interpretation (Text): 09/02/18 19:15 EKG shows NSR at 62 BPM with short NE intervals. No ST elevation or T wave inversions. Interpreted by me. Interpreted by ED Physician: Yes Type: 12 lead EKG - Scribe Statement The provider has reviewed the documentation as recorded by the Scribe Jerry Joe Provider Scribe Attestation: All medical record entries made by the Scribe were at my direction and personally dictated by me. I have reviewed the chart and agree that the record accurately reflects my personal performance of the history, physical exam, medical decision making, and the department course for this patient. I have also personally directed, reviewed, and agree with the discharge instructions and disposition. Disposition/Present on Arrival - Present on Arrival History of DVT/PE: No History of Uncontrolled Diabetes: No Urinary Catheter: No History of Decub. Ulcer: No History Surgical Site Infection Following: None - Disposition Forms: AMS-Qi (Cook Islander)
[2018-09-02 19:40] LABS: BASO # 0.02 K/mm3 (0.0-2.0); BASO % 0.2 % (0.0-3.0); EOS # 0.2 (0.0-0.7); EOS % 2.7 % (1.5-5.0); GRAN # 5.62 (1.4-6.5); GRAN % 66.9 % (50.0-68.0); HEMOGLOBIN 13.6 g/dL (12.0-16.0); LYMPH # 2.2 (1.2-3.4); MEAN CELL VOLUME 88.1 fl (80.0-105.0); MEAN CORPUSCULAR HEMOGLOBIN 29.4 pg (25.0-35.0); MEAN CORPUSCULAR HGB CONC 33.3 g/dl (31.0-37.0); MONO # 0.4 (0.1-0.6); MONO % 4.2 % (1.0-6.0); RBC 4.63 10^6/uL (3.5-6.1); RED CELL DISTRIBUTION WIDTH 12.8 % (11.5-14.5); WHITE BLOOD COUNT 8.4 10^3/uL (4.5-11.0)
[2018-09-02 19:51] LABS: ALB/GLOB RATIO 1.2 (1.1-1.8); ALBUMIN 4.1 g/dL (3.0-4.8); ALT/SGPT 21 U/L (7-56); AST/SGOT 22 U/L (14-36); BLOOD UREA NITROGEN 15 mg/dL (7-21); GFR NON-AFRICAN AMERICAN > 60
--- NOTE | 2018-09-02 20:22 | ED PDOC ---
Physical Exam Vital Signs Temp Pulse Resp BP Pulse Ox 09/02/18 17:53 97.9 F 63 18 143/86 100 Medical Decision Making ED Course and Treatment: 09/02/18 20:21 Patient endorsed to me by . Pending urinalysis and D-dimer. - Lab Interpretations Lab Results: 09/02/18 19:30 09/02/18 19:30 Lab Results 09/02/18 19:30: Influenza Typ A,B (EIA) Negative for flu a/b 09/02/18 19:30: Sodium 141, Potassium 3.7, Chloride 106, Carbon Dioxide 27, Anion Gap 12, BUN 15, Creatinine 0.8, Est GFR ( Amer) > 60, Est GFR (Non- Af Amer) > 60, Random Glucose 92, Calcium 9.0, Total Bilirubin 0.5, AST 22, ALT 21, Alkaline Phosphatase 69, Total Protein 7.6, Albumin 4.1, Globulin 3.5, Albumin/Globulin Ratio 1.2 09/02/18 19:30: WBC 8.4, RBC 4.63, Hgb 13.6, Hct 40.8, MCV 88.1, MCH 29.4, MCHC 33.3, RDW 12.8, Plt Count 275, MPV 9.0, Gran % 66.9, Lymph % (Auto) 26.0, [place] % (Auto) 4.2, Eos % (Auto) 2.7, Baso % (Auto) 0.2, Gran # 5.62, Lymph # (Auto) 2.2, [place] # (Auto) 0.4, Eos # (Auto) 0.2, Baso # (Auto) 0.02, ESR Pending 09/02/18 18:11: Urine HCG, Qual Negative - RAD Interpretation Narrative RAD Interpretations (Text): CTA chest with Intravenous Contrast for Pulmonary Embolism reviewed by radiologist, shows: Exam Date: Sep 02, 2018 9:43:48 PM FINDINGS: PULMONARY ARTERIES No evidence of central or segmental pulmonary embolism is seen. AORTA There is no evidence for aneurysm or dissection of the thoracic aorta. LUNGS The lungs appear clear. PLEURAL SPACES No evidence of pneumothorax. No pleural effusion. HEART Heart is enlarged. No significant pericardial effusion. LYMPH NODES No lymphadenopathy is evident. BONES No focal osseous abnormality or acute fracture. UPPER ABDOMEN Images of the upper abdomen are unremarkable. Bilateral renal cysts are seen, largest on the right 6.5 cm. IMPRESSION: Unremarkable pulmonary embolism protocol CTA of the chest. Radiology Orders: 09/02/18 18:30 CHEST PORTABLE [RAD] Stat Blanking Press Operator: Radiologist - Medication Orders Current Medication Orders: Discontinued Medications Albuterol/Ipratropium (Duoneb 3 Mg/0.5 Mg (3 Ml) Ud) 3 ml IH STAT STA Stop: 09/02/18 18:32 Last Admin: 09/02/18 19:19 Dose: 3 ml Prednisone (Prednisone Tab) 60 mg PO STAT ONE Stop: 09/02/18 18:32 Last Admin: 09/02/18 19:18 Dose: 60 mg - Scribe Statement The provider has reviewed the documentation as recorded by the Luisitoibrao Joe Provider Scribe Attestation: All medical record entries made by the Scribe were at my direction and personally dictated by me. I have reviewed the chart and agree that the record accurately reflects my personal performance of the history, physical exam, medical decision making, and the department course for this patient. I have also personally directed, reviewed, and agree with the discharge instructions and disposition. Disposition/Present on Arrival - Present on Arrival Any Indicators Present on Arrival: No History of DVT/PE: No History of Uncontrolled Diabetes: No Urinary Catheter: No History of Decub. Ulcer: No History Surgical Site Infection Following: None - Disposition Have Diagnosis and Disposition been Completed?: Yes Diagnosis: UTI (urinary tract infection) Disposition: HOME/ ROUTINE Disposition Time: 22:20 Condition: GOOD Discharge Instructions (ExitCare): Urinary Tract Infection, Adult (DC) Additional Instructions: COLEEN MAHMOOD, thank you for letting us take care of you today. The emergency medical care you received today was directed at your acute symptoms. If you were prescribed any medication, please fill it and take as directed. It may take several days for your symptoms to resolve. Return to the Emergency Department if your symptoms worsen, do not improve, or if you have any other problems. Please contact your doctor or call one of the physicians/clinics you have been referred to that are listed on the Patient Visit Information form that is in cluded in your discharge packet. Bring any paperwork you were given at discharge with you along with any medications you are taking to your follow up visit. Our treatment cannot replace ongoing medical care by a primary care provider outside of the emergency department. Thank you for allowing the [facility] team to be part of your care today. Follow up with your primary care doctor in 2-3 days for re-evaluation and further management. Prescriptions: Phenazopyridine [Pyridium] 100 mg PO TID #6 tab predniSONE [Prednisone] 40 mg PO DAILY #10 tab Sulfamethoxazole/Trimethoprim [Bactrim DS 800 mg-160 mg] 1 tab PO BID #10 tab [facility] - Follow up with primary Forms: Kivo (Wolof)
[2018-09-02 21:26] LABS: URINE BILIRUBIN SMALL (NEGATIVE); URINE BLOOD LARGE (NEGATIVE); URINE GLUCOSE (UA) 500 mg/dL (NEGATIVE); URINE LEUKOCYTE ESTERASE MODERATE Leu/uL (NEGATIVE); URINE PROTEIN >=300 mg/dL (<30 mg/dL); URINE UROBILINOGEN >=8.0 E.U./dL (<1 E.U./dL)
[2018-09-02 21:31] LABS: URINE APPEARANCE BLOODY (CLEAR); URINE COLOR RED (YELLOW)
[2018-09-02 21:32] LABS: URINE RBC 25 - 30 /hpf (0-2); URINE WBC 20 - 25 /hpf (0-6)
[2018-09-02 21:33] LABS: URINE BACTERIA FEW (NEG)
[2018-09-02] MEDS ORDERED: Tmp-Smz 800 mg-160 mg DS Tab PO STA (22:54)
[2018-09-02 23:06] VITALS: BP 128/68; PULSE 77; TEMP 98.1
--- NOTE | 2018-09-03 09:22 | RAD ---
Date of service: 09/02/2018 HISTORY: sob COMPARISON: 04/30/2018 FINDINGS: LUNGS: No active pulmonary disease. PLEURA: No significant pleural effusion identified, no pneumothorax apparent. CARDIOVASCULAR: No aortic atherosclerotic calcification present. Normal cardiac size. No pulmonary vascular congestion. OSSEOUS STRUCTURES: No significant abnormalities. VISUALIZED UPPER ABDOMEN: Normal. OTHER FINDINGS: None. IMPRESSION: No active disease.
--- NOTE | 2018-09-03 09:38 | CARD ---
APPROVED REPORT Date of service: 09/02/2018 EKG Measurement Heart [id number] <Conclusion> Sinus rhythm with short [place] No change
--- NOTE | 2018-09-03 10:38 | CT ---
Date of service: 09/02/2018 PROCEDURE: CT Chest with contrast (Pulmonary Angiogram) HISTORY: r/o PE COMPARISON: None available. TECHNIQUE: Axial computed tomography images were obtained of the chest in the pulmonary arterial phase of enhancement. Coronal and sagittal reformatted images were created and reviewed. Intravenous contrast dose: Radiation dose: Total exam DLP = 497.86 mGy-cm. This CT exam was performed using one or more of the following dose reduction techniques: Automated exposure control, adjustment of the mA and/or kV according to patient size, and/or use of iterative reconstruction technique. FINDINGS: PULMONARY ARTERIES: Unremarkable. No pulmonary embolism. AORTA: No acute findings. No thoracic aortic aneurysm. No aortic atherosclerotic calcification or mural plaque present. LUNGS: Unremarkable. No nodule, mass or pulmonary consolidation. PLEURAL SPACES: Unremarkable. No effusion or pneumothorax. HEART: Unremarkable. No cardiomegaly. No significant pericardial effusion. LYMPH NODES: No lymphadenopathy. BONES, CHEST WALL: Unremarkable. No fracture or destructive lesion OTHER FINDINGS: Incompletely imaged probable right renal cyst.. IMPRESSION: Unremarkable CT pulmonary angiogram. No pulmonary embolus.
== END 2018-09-02 23:32 | disposition home or self-care (01) ==
LOC: ED 17:23
DX: N39.0 Urinary tract infection, site not specified (principal); I48.91 Unspecified atrial fibrillation; I25.2 Old myocardial infarction; I10 Essential (primary) hypertension; Z86.73 Personal history of transient ischemic attack (TIA), and cerebral infarction without residual deficits
CPT/HCPCS: 71045; 71275; 80053; 81001; 84703; 85025; 85378; 85651; 87086; 87804; 93005; 94640; 99283; Q9967